=== PATIENT | female | born 1960 | race Hispanic/Latino ===

== ENCOUNTER 2023-07-10 15:42 | Inpatient (IN) | payer SELFPAY ==
--- OUTSIDE RECORDS SUMMARY | 2023-07-10 15:45 | XMS REPORT | Continuity of Care Document ---
Author Name Unknown Address [address] [place] [address] [place] [address] [facility] Address [address] [place] [address] [address] [place] [address] Care Team Providers Care Babysitter Name Role Phone Unavailable Unavailable Unavailable Encounters Start Date/Time End Date/Time Encounter Type Admission Type Attending Clinicians Care Facility Care Department Encounter ID Source 2021-10-17 15:27:27 Outpatient [facility] [id number] [facility] 2021-10-15 13:51:16 Outpatient [facility] [id number] [facility] 2023-03-19 13:12:48 2023-03-19 13:12:48 Outpatient [facility] [id number] Um[address] Hearn
[2023-07-10 17:04] LABS: Absolute Lymphocytes (CBC) 2.2 K/uL (0.7-4.9); Hematocrit 32.2 % (36.0-45.0); Lymphocytes % 28.2 % (15.3-44.8); MPV 8.2 fL (7.6-11.3); Platelets 216 thou/uL (152-406)
[2023-07-10 17:21] LABS: Magnesium 2.5 mg/dL (1.6-2.4); Potassium 4.9 mEq/L (3.5-5.1)
--- NOTE | 2023-07-10 17:56 | RAD REPORT ---
EXAM DESCRIPTION: [place] Single View07/10/2023 5:35 pm CLINICAL HISTORY: Chest pain COMPARISON: 2016 FINDINGS: Mild bilateral interstitial lung opacities. Heart may be mildly enlarged IMPRESSION: Mild interstitial pulmonary edema
[2023-07-10] MEDS ORDERED: FUROSEMIDE 20 MG/ 2ML VIAL ONE (18:05)
--- NOTE | 2023-07-10 18:20 | ER ---
Nurse's Notes [facility] Name: Sophia Palacios Age: 62 yrs Sex: Female : 1960 Arrival Date: 07/10/2023 Time: 15:42 Bed 5 Private MD: Diagnosis: Dyspnea;Acute pulmonary edema;Unspecified combined systolic (congestive) and diastolic (congestive) heart failure;Chest pain, unspecified Presentation: 07/10 15:49 Chief complaint: Patient states: she has been having shortness of breath for approx one ap3 week, and chest pain on the left side that began today which is worse when she takes a deep breath in. patient rates her pain as a 6/10 on the pain scale at this time. Coronavirus screen: At this time, the client does not indicate any symptoms associated with coronavirus-19. Ebola Screen: No symptoms or risks identified at this time. Initial Sepsis Screen: Does the patient meet any 2 criteria?. Risk Assessment: Do you want to hurt yourself or someone else? Patient reports no desire to harm self or others. Onset of symptoms was July 03, 2023. 15:49 Method Of Arrival: EMS: [facility] ap3 16:33 Initial Sepsis Screen: Does the patient have a suspected source of infection? No. jl7 Patient's initial sepsis screen is negative. 16:33 Acuity: MARU 2 jl7 Triage Assessment: 15:51 General: Appears comfortable, Behavior is calm, cooperative. Pain: Complains of pain in ap3 anterior aspect of left upper chest and left breast Pain currently is 6 out of 10 on a pain scale. Neuro: Level of Consciousness is awake, alert, obeys commands, Oriented to person, place, time, situation, Appropriate for age. Cardiovascular: Reports chest pain, Patient's skin is warm and dry. Respiratory: Airway is patent Respiratory effort is even, unlabored, Respiratory pattern is regular, symmetrical. Historical: - Allergies: 16:32 Zofran; jl7 16:32 PENICILLINS; jl7 - PMHx: 15:51 Anxiety; Bipolar disorder; Depression; Depression; ESRD; Headaches; Hypertension; ap3 Hypothyroidism; - Immunization history:: Adult Immunizations unknown. - Social history:: Smoking status: Patient reports the use of cigarette tobacco products, denies chronic smoking, but will smoke occasionally. Screenin:52 Abuse screen: Denies threats or abuse. Nutritional screening: No deficits noted. ap3 Tuberculosis screening: No symptoms or risk factors identified. 18:00 [facility] ED Fall Risk Assessment (Adult) History of falling in the last 3 months, jw7 including since admission No falls in past 3 months (0 pts) Score/Fall Risk Level 0 - 2 = Low Risk Oriented to surroundings, Maintained a safe environment, Provided non-skid footwear. Assessment: 17:00 General: see triage assessment . jw7 18:00 Reassessment: Patient appears in no apparent distress at this time. No changes from jw7 previously documented assessment. Patient and/or family updated on plan of care and expected duration. Pain level reassessed. Patient is alert, oriented x 3, equal unlabored respirations, skin warm/dry/pink. 19:00 Reassessment: Patient appears in no apparent distress at this time. No changes from km8 previously documented assessment. Patient and/or family updated on plan of care and expected duration. Pain level reassessed. Patient is alert, oriented x 3, equal unlabored respirations, skin warm/dry/pink. 19:00 Neuro: Level of Consciousness is awake, alert, obeys commands, Oriented to person, km8 place, time, situation. Cardiovascular: Denies chest pain, Capillary refill < 3 seconds Patient's skin is warm and dry. Respiratory: Reports shortness of breath Airway is patent Respiratory effort is even, unlabored, Respiratory pattern is regular, symmetrical. 20:00 Reassessment: Patient appears in no apparent distress at this time. No changes from km8 previously documented assessment. Patient and/or family updated on plan of care and expected duration. Pain level reassessed. Patient is alert, oriented x 3, equal unlabored respirations, skin warm/dry/pink. 21:00 Reassessment: Patient appears in no apparent distress at this time. No changes from km8 previously documented assessment. Patient and/or family updated on plan of care and expected duration. Pain level reassessed. Patient is alert, oriented x 3, equal unlabored respirations, skin warm/dry/pink. Vital Signs: 15:49 Weight 61.23 kg; Height 5 ft. 3 in. ; Pain 6/10; ap3 16:32 BP 136 / 105; Pulse 78; Resp 15; Temp 97.7; Pulse Ox 100% ; Weight 61.23 kg; Height 5 [facility] ft. 3 in. ; Pain 6/10; 18:00 BP 141 / 110; Pulse 82; Resp 17 S; Pulse Ox 95% on R/A; jw7 18:46 BP 134 / 101; Pulse 78; Resp 16 S; Pulse Ox 98% on R/A; jw7 19:15 BP 139 / 93; Pulse 78; Resp 18; Pulse Ox 98% on 2 lpm NC; km8 20:00 BP 131 / 90; Pulse 75; Resp 18; Pulse Ox 98% on 2 lpm NC; km8 21:00 BP 115 / 72; Pulse 82; Resp 18; Pulse Ox 98% on NC; km8 16:32 Body Mass Index 23.91 (61.23 kg, 160.02 cm) [facility] 15:49 Pain Scale: Adult ap3 16:32 Pain Scale: Adult 7 ED Course: 15:49 Patient arrived in ED. ap3 15:52 Arm band placed on right wrist. ap3 16:33 Triage completed. [facility] 16:48 Anthony Savage PA is PHCP. cp 16:48 Anthony Hinojosa MD is Attending Physician. cp 16:55 Initial lab(s) drawn, by in, sent to lab. EKG done, by ED staff, reviewed by Anthony alvarez PA. Maintain EMS IV. Dressing intact. Good blood return noted. Site clean \T\ dry. Gauge \T\ site: 20 left FA. 17:37 XRAY Chest (1 view) In Process Unspecified. EDMS 18:18 Js Cooper MD is Hospitalizing Provider. cp 18:47 Patient has correct armband on for positive identification. Bed in low position. Call [facility] light in reach. Side rails up X2. 21:00 Provided Education on: admission process. km8 21:00 No provider procedures requiring assistance completed. Patient admitted, IV remains in km8 place. Administered Medications: 18:16 Drug: Furosemide IVP 20 mg IVP once; give over 2 minutes Route: IVP; Site: left forearm;[facility] 19:00 Follow up: Response: No adverse reaction [facility] 18:44 Drug: morphine IVP or IV 2 mg IVP once over 4 mins Route: IVP; Infused Over: 4 mins; [facility] Site: left forearm; 19:00 Follow up: Response: No adverse reaction; Pain is decreased km8 18:44 Drug: metoCLOPramide IVP 10 mg IVP once; over 1 to 2 minutes Route: IVP; Site: left jw7 forearm; 19:00 Follow up: Response: No adverse reaction km8 Medication: 21:00 VIS not applicable for this client. km8 Outcome: 18:19 Decision to Hospitalize by Provider. cp 21:00 Admitted to Med/surg km8 21:00 Condition: stable 21:00 Instructed on the need for admit, Demonstrated understanding of instructions, 07/11 10:51 Patient left the ED. cp4 Signatures: Dispatcher [employer] EDMS Anthony Savage PA PA cp Leal, Jahala RN RN randy7 Hina Roth RN RN ap3 Geraldine Garrett RN RN jw7 Babita Roe cp4 Zeina Vargas, LEANDER RN km8 Corrections: (The following items were deleted from the chart) 07/10 15:51 15:51 Allergies: Tylenol; ap3 ap3 15:51 15:51 Allergies: Zofran; ap3 ap3 18:45 16:00 General: see triage assessment . jw7 jw7
--- NOTE | 2023-07-10 18:20 | EDPHYS ---
Physician Documentation [facility] Name: Sophia Palacios Age: 62 yrs Sex: Female : 1960 Arrival Date: 07/10/2023 Time: 15:42 Bed 5 Private MD: ED Physician Anthony Hinojosa HPI: 07/10 16:53 This 62 yrs old Female presents to ER via EMS with complaints of Chest Pain. cp 16:53 The patient has shortness of breath with light activity. Onset: The symptoms/episode cp began/occurred 4 day(s) ago, and became worse today. Duration: The symptoms are continuous, and are steadily getting worse. Associated signs and symptoms: Pertinent positives: chest pain, non-productive cough, Pertinent negatives: fever, nausea, vomiting. Severity of symptoms: in the emergency department the symptoms are unchanged despite home interventions. Historical: - Allergies: 16:32 Zofran; jl7 16:32 PENICILLINS; jl7 - PMHx: 15:51 Anxiety; Bipolar disorder; Depression; Depression; ESRD; Headaches; Hypertension; ap3 Hypothyroidism; - Immunization history:: Adult Immunizations unknown. - Social history:: Smoking status: Patient reports the use of cigarette tobacco products, denies chronic smoking, but will smoke occasionally. ROS: 16:55 Constitutional: Negative for body aches, chills, fever, poor PO intake, cp 16:55 Eyes: Negative for injury, pain, redness, and discharge, cp 16:55 ENT: Negative for drainage from ear(s), ear pain, sore throat, difficulty swallowing, difficulty handling secretions, 16:55 Cardiovascular: Positive for chest pain, Negative for edema, palpitations, 16:55 Respiratory: Positive for cough, with no reported sputum, shortness of breath, on exertion. Negative for wheezing, 16:55 Abdomen/GI: Negative for abdominal pain, vomiting, diarrhea, constipation, 16:55 Neuro: Positive for weakness, Negative for altered mental status, dizziness, headache, Exam: 16:45 ECG was reviewed by the Attending Physician. cp 17:00 Constitutional: The patient appears in no acute distress, alert, awake, cp non-diaphoretic, non-toxic, well developed, well nourished, 17:00 Head/Face: Normocephalic, atraumatic. cp 17:00 Eyes: Periorbital structures: appear normal, Conjunctiva: normal, no exudate, no injection, Sclera: no appreciated abnormality, Lids and lashes: appear normal, bilaterally, 17:00 ENT: External ear(s): are unremarkable, Nose: is normal, Mouth: Lips: moist, Oral mucosa: pink and intact, moist, Posterior pharynx: is normal, airway is patent, no erythema, no exudate, 17:00 Chest/axilla: Inspection: normal, 17:00 Cardiovascular: Rate: normal, Rhythm: regular, Edema: is not appreciated, JVD: 17:00 Respiratory: the patient does not display signs of respiratory distress, Respirations: normal, no use of accessory muscles, no retractions, labored breathing, is not present, Breath sounds: are clear throughout, no decreased breath sounds, no stridor, no wheezing, 17:00 Abdomen/GI: Inspection: abdomen appears normal, Palpation: abdomen is soft and non-tender, in all quadrants, 17:00 Back: pain, is absent, ROM is normal, CVA tenderness, is absent, cp 17:00 Neuro: Orientation: to person, place \T\ time. Mentation: is normal, Motor: moves all fours, strength is normal, Sensation: no obvious gross deficits, Vital Signs: 15:49 Weight 61.23 kg; Height 5 ft. 3 in. ; Pain 6/10; ap3 16:32 BP 136 / 105; Pulse 78; Resp 15; Temp 97.7; Pulse Ox 100% ; Weight 61.23 kg; Height 5 jl7 ft. 3 in. ; Pain 6/10; 18:00 BP 141 / 110; Pulse 82; Resp 17 S; Pulse Ox 95% on R/A; jw7 18:46 BP 134 / 101; Pulse 78; Resp 16 S; Pulse Ox 98% on R/A; jw7 19:15 BP 139 / 93; Pulse 78; Resp 18; Pulse Ox 98% on 2 lpm NC; km8 20:00 BP 131 / 90; Pulse 75; Resp 18; Pulse Ox 98% on 2 lpm NC; km8 21:00 BP 115 / 72; Pulse 82; Resp 18; Pulse Ox 98% on NC; km8 16:32 Body Mass Index 23.91 (61.23 kg, 160.02 cm) 7 15:49 Pain Scale: Adult ap3 16:32 Pain Scale: Adult jl7 MDM: 17:05 Patient medically screened. nawaf 18:15 Data reviewed: vital signs, nurses notes, lab test result(s), EKG, radiologic studies, cp plain films, and as a result, I will admit patient. 18:15 Management of patient was discussed with the following: Hospitalist: DR Cooper will cp admit after discussion. 07/10 16:39 Order name: Basic Metabolic Panel; Complete Time: 17:35 [facility] 07/10 17:35 Interpretation: Normal except: CL 110; GLUC 132; BUN 24; CRE 2.23; GFR 24. 07/10 16:39 Order name: CBC with Diff; Complete Time: 17:35 [facility] 07/10 17:36 Interpretation: RBC 3.50; HGB 11.0; HCT 32.2. 07/10 16:39 Order name: Troponin HS; Complete Time: 17:35 [facility] 07/10 16:53 Order name: Urinalysis W/Microscopic 07/10 16:58 Order name: NT PRO-BNP; Complete Time: 17:35 [facility] 07/10 17:36 Interpretation: Normal except: NT PRO-BNP 33396. 07/10 16:58 Order name: Magnesium; Complete Time: 17:35 [facility] 07/10 17:36 Interpretation: Abnormal: MG 2.5. 07/10 20:05 Order name: CBC with Automated Diff [facility] 07/10 20:05 Order name: CBC with Automated Diff [facility] 07/10 20:05 Order name: Comprehensive Metabolic Panel [facility] 07/10 20:05 Order name: Comprehensive Metabolic Panel [facility] 07/10 20:05 Order name: Lipid Profile [facility] 07/10 20:05 Order name: Lipid Profile [facility] 07/10 20:05 Order name: Troponin High Sensitivity [facility] 07/10 20:05 Order name: Troponin High Sensitivity [facility] 07/10 20:05 Order name: Troponin High Sensitivity [facility] 07/10 20:05 Order name: Troponin High Sensitivity [facility] 07/10 21:53 Order name: Glucose, Ancillary Testing [facility] 07/11 08:41 Order name: Glucose, Ancillary Testing [facility] 07/10 16:39 Order name: XRAY Chest (1 view); Complete Time: 18:14 [facility] 07/10 16:39 Order name: EKG; Complete Time: 16:40 07/10 16:39 Order name: Cardiac monitoring; Complete Time: 17:59 07/10 16:39 Order name: EKG - Nurse/Tech; Complete Time: 16:56 07/10 16:39 Order name: IV Saline Lock; Complete Time: 16:56 07/10 16:39 Order name: Labs collected and sent; Complete Time: 16:56 07/10 16:39 Order name: O2 Per Protocol; Complete Time: 16:56 07/10 16:39 Order name: O2 Sat Monitoring; Complete Time: 16:56 EC:45 Rate is 78 beats/min. Rhythm is regular. TX interval is normal. QRS interval is normal. cp QT interval is normal. Interpreted by me. Reviewed by me. Administered Medications: 18:16 Drug: Furosemide IVP 20 mg IVP once; give over 2 minutes Route: IVP; Site: left forearm;[facility] 19:00 Follow up: Response: No adverse reaction [facility] 18:44 Drug: morphine IVP or IV 2 mg IVP once over 4 mins Route: IVP; Infused Over: 4 mins; [facility] Site: left forearm; 19:00 Follow up: Response: No adverse reaction; Pain is decreased 8 18:44 Drug: metoCLOPramide IVP 10 mg IVP once; over 1 to 2 minutes Route: IVP; Site: left [address]; 19:00 Follow up: Response: No adverse reaction km8 Disposition Summary: 07/10/23 18:19 Hospitalization Ordered Notes: Hospitalization Status: Inpatient Admission cp Provider: Js Cooper cp Condition: Stable cp Problem: new cp Symptoms: have improved cp Bed/Room Type: Standard cp Location: Telemetry/MedSurg (Inpatient)(07/11/23 07:27) sp Room Assignment: 211(07/11/23 07:27) sp Diagnosis - Dyspnea cp - Acute pulmonary edema cp - Unspecified combined systolic (congestive) and diastolic (congestive) heart failure cp - Chest pain, unspecified cp Forms: - Medication Reconciliation Form cp - SBAR form cp - Leadership Thank You Letter cp Signatures: Dispatcher [employer] EDAnthony Bravo MD MD cha Pinkerton, Shawna sp Page, Corey, PA PA cp Garcia, Cindy, RN RN cg Sukhwinder Alberto RN RN jl7 Hina Roth RN RN ap3 Geraldine Garrett RN RN jw7 Zeina Vargas RN km8 Corrections: (The following items were deleted from the chart) 15:51 15:51 Allergies: Tylenol; ap3 ap3 15:51 15:51 Allergies: Zofran; ap3 ap3 16:56 16:53 Urinalysis W/Microscopic+U.LAB.BRZ ordered. EDMS EDMS 16:58 16:42 PROBNP+C.LAB.BRZ ordered. EDMS EDMS 16:59 16:53 MAGNESIUM+C.LAB.BRZ ordered. EDMS EDMS 19:55 18:19 Telemetry/MedSurg (Inpatient) cp cg 19:55 18:19 cp cg 07/11 07:27 07/10 19:55 [facility] ER HOLD cg sp 07/11 07:27 07/10 19:55 ERHOLD- cg sp
[2023-07-10] MEDS ORDERED: METOCLOPRAMIDE 10 MG/2mL INJ ONE (18:35)
[2023-07-10] MEDS ORDERED: MORPHINE 2 MG/ML SYR ONE (18:35)
[2023-07-10] MEDS ORDERED: ONDANSETRON 4 MG/2 ML VIAL IV PRN (19:59)
[2023-07-10] MEDS ORDERED: ACETAMINOPHEN 325 MG TABLET PO PRN (19:59)
[2023-07-10] MEDS: INSULIN REGULAR (HUMAN) 100 UNIT/ML SQ SCH (21:48)
[2023-07-11] MEDS ORDERED: FUROSEMIDE 40 MG/4 ML VIAL ONE ×2 (00:59→10:04)
[2023-07-11] MEDS ORDERED: HEPARIN 5000 UNIT/ML 1 ML VIAL ONE ×2 (00:59→10:03)
[2023-07-11] MEDS: FUROSEMIDE 40 MG/4 ML VIAL IV SCH ×2 (01:20→09:00)
[2023-07-11] MEDS: HEPARIN 5000 UNIT/ML 1 ML VIAL SQ SCH ×3 (01:20→16:21)
[2023-07-11 03:25] LABS: Specific Gravity 1.007 (1.005-1.030); Urine Bacteria <20 /HPF (<20); Urine Bilirubin NEGATIVE (Negative); Urine Blood Negative (Negative); Urine Clarity Turbid (Clear); Urine Color Colorless (Yellow); Urine Glucose NEGATIVE (Negative); Urine Mucus Slight /HPF (None Seen); Urine Protein NEGATIVE (Negative); Urine RBC <5 /HPF (None Seen); Urine Urobilinogen Normal (Normal); Urine pH 5.5 (5.0-7.0)
[2023-07-11 04:25] LABS: Absolute Lymphocytes (CBC) 2.7 K/uL (0.7-4.9); Hematocrit 32.8 % (36.0-45.0); Lymphocytes % 31.7 % (15.3-44.8); MCV 92.2 fL (80-100); MPV 8.2 fL (7.6-11.3); Platelets 235 thou/uL (152-406); RBC Red Blood Cell Count 3.55 M/uL (3.86-4.86)
--- NOTE | 2023-07-11 04:34 | P.HP ---
Certification for Inpatient Patient admitted to: Observation With expected LOS: <2 Midnights Practitioner: I am a practitioner with admitting privileges, knowledge of patient current condition, hospital course, and medical plan of care. Services: Services provided to patient in accordance with Admission requirements found in Title 42 Section 412.3 of the Code of Federal Regulations Patient History Date of Service: 07/11/23 Reason for admission: CHF exacerbation History of Present Illness: 62-year-old female patient with medical history significant for hypertension, depression, chronic kidney disease was evaluated for episode of shortness of breath. She reported shortness of breath on minimal to moderate exertion, orthopnea and PND symptoms. She reports that she wakes up in the middle of the night gasping for breath and she has to sit up. This has been going on for couple of weeks. In the ED she was found to have x-ray finding concerning for congestion and elevated BNP with a creatinine of 2.3. She was started on diuretic therapy and was asked to be admitted for management of CHF exacerbation. She reports that she has not had significant heart workup in the past. Allergies acetaminophen [From Tylenol] Allergy (Unverified 10/17/15 15:12) Unknown No Known Drug Allergies Allergy (Verified 10/12/14 22:41) Unknown ondansetron HCl [From Zofran (as hydrochloride)] Allergy (Unverified 11/10/14 21:58) Unknown Penicillins Allergy (Unverified 11/25/14 00:48) Unknown Zofran Allergy (Uncoded 03/14/15 18:01) Unknown Zofran (as hydrochloride) Allergy (Uncoded 12/22/14 09:47) Unknown Home Medications: Metoprolol Tartrate [Lopressor*] 100 mg PO BID 07/23/13 Aspirin Chewable [Aspirin Chewable*] 81 mg PO DAILY #30 tab.chew 04/19/14 Amlodipine [Norvasc*] 10 mg PO DAILY 10/13/14 Citalopram [Celexa*] 10 mg PO DAILY 10/13/14 Trazodone HCl 100 mg PO DAILY 07/10/23 - Past Medical/Surgical History Diabetic: No -: depression -: bipolar -: htn -: hypothyroidism -: chronic renal failure -: anxiety -: migraines -: hysterectomy -: tubal ligation -: gastric bypass -: bilateral tubal -: fatuma funduplication - Social History Smoking Status: Light Tobacco smoker (1-9 cigarettes/day) Alcohol use: No CD- Drugs: No Caffeine use: No Review of Systems General: Unremarkable Eyes: Unremarkable ENT: Unremarkable Respiratory: Shortness of Breath, SOB with Excertion Cardiovascular: Orthopnea, Paroxysmal Noc. Dyspnea Gastrointestinal: Unremarkable Genitourinary: Unremarkable Musculoskeletal: Unremarkable Integumentary: Unremarkable Neurological: Unremarkable Physical Examination - Vital Signs Blood Pressure: 115/79 Pulse: 75 Respirations: 18 Pulse Ox (%): 96 - Physical Exam General: Alert, Oriented x3 HEENT: Atraumatic Neck: Supple Respiratory: Normal air movement Cardiovascular: Regular rate/rhythm, Normal S1 S2 Gastrointestinal: Soft and benign Musculoskeletal: No swelling Neurological: Normal speech - Studies Laboratory Data (last 24 hrs) 07/10/23 07/10/23 07/10/23 16:53 16:49 16:49 WBC 7.70 Hgb 11.0 L Hct 32.2 L Plt Count 216 Sodium 138 Potassium 4.9 BUN 24 H Creatinine 2.23 H Glucose 132 H Magnesium Cancelled 2.5 H Assessment and Plan - Plan CHF exacerbation: Patient has clinical and imaging finding concerning for Will continue IV Lasix 40 mg every 8 Will continue fluid restriction of 1.2 L/day. Continue out of the diet. Will have echocardiogram done to evaluate cardiac function Hypertension: We will monitor vital signs per unit protocol and continue antihypertensive medications. Hyperlipidemia: We will continue statin therapy and obtain lipid panel. ANGELY versus CKD: Creatinine is elevated at 2.3. Will dose meds for estimated glomerular filtration and avoid exposure to nephrotoxins. We will obtain renal ultrasound to evaluate for CKD. Prophylaxis: Heparin for DVT prophylaxis CODE STATUS: Full code Disposition: We will treat her CHF exacerbation and discharge her once she is deemed clinically stable. - Advance Directives Does patient have a Living Will: No Does patient have a Durable POA for Healthcare: No
[2023-07-11 04:54] LABS: Albumin 3.5 g/dL (3.4-5.0); Bilirubin Total 0.5 mg/dL (0.2-1.0); Potassium 3.7 mEq/L (3.5-5.1)
[2023-07-11] MEDS ORDERED: POTASSIUM 25 MEQ EFFERV TAB PO ONE (05:14)
[2023-07-11] MEDS ORDERED: POTASSIUM 25 MEQ EFFERV TAB ONE (05:53)
[2023-07-11] MEDS: INSULIN REGULAR (HUMAN) 100 UNIT/ML SQ SCH ×4 (07:30→20:00)
--- NOTE | 2023-07-11 12:28 | P.PN ---
Subjective Date of Service: 07/11/23 Chief Complaint: CHF exacerbation Pt is resting comfortably in bed. She is using 2L BNC. Pt reports good urine output. This is likely new onset CHF. Will follow up Echo. Consulted cardiology. No other complaints. Review of Systems Unremarkable General: Unremarkable Eyes: Unremarkable ENT: Unremarkable Respiratory: Unremarkable Cardiovascular: Unremarkable Gastrointestinal: Unremarkable Genitourinary: Unremarkable Musculoskeletal: Unremarkable Integumentary: Unremarkable Neurological: Unremarkable Lymphatics: Unremarkable Physical Examination - Vital Signs Temperature: 98 F Blood Pressure: 119/87 Pulse: 66 Respirations: 18 Pulse Ox (%): 100 - Physical Exam General: Alert, In no apparent distress, Oriented x3 HEENT: Atraumatic, Normocephalic Neck: Supple, 2+ carotid pulse no bruit Respiratory: Clear to auscultation bilaterally, Normal air movement Cardiovascular: No edema, Normal pulses Capillary refill: <2 Seconds Gastrointestinal: Normal bowel sounds, Soft and benign, Non-distended Musculoskeletal: No clubbing, No swelling Integumentary: No rashes, No breakdown Neurological: Normal gait, Normal speech, Normal strength at 5/5 x4 extr Lymphatics: No axilla or inguinal lymphadenopathy - Studies Laboratory Data (last 24 hrs) 07/10/23 07/10/23 07/10/23 16:53 16:49 16:49 WBC 7.70 Hgb 11.0 L Hct 32.2 L Plt Count 216 Sodium 138 Potassium 4.9 BUN 24 H Creatinine 2.23 H Glucose 132 H Magnesium Cancelled 2.5 H Assessment And Plan - Plan New onset CHF exacerbation:Will contineu lasix 20mg iv BID, strict I/O, daily weight and low salt diet. Troponin is 44.5 -> 48.7. Will follow up Echo and consult Cardiology Hypertension: Continue antihypertensive. Hyperlipidemia: Lipid panel shows T.chol of 408 and LDL 278. Will start Statin. ANGELY versus CKD: Creatinine is 2.27. Will avoid nephrotoxins and monitor renal function. DVT Prophylaxis: Heparin CODE STATUS: Full code Disposition: Pending hospital course. Discharge Plan: Home Plan to discharge in: 24 Hours - Code Status/Comfort Care Code Status Assessed: Yes
--- NOTE | 2023-07-11 13:10 | RAD REPORT ---
EXAM DESCRIPTION: US - Renal Ultrasound-Complete - 07/11/2023 11:42 am CLINICAL HISTORY: eval of ckd COMPARISON: CTSTONE PROTOCOL dated 12/22/2014 TECHNIQUE: Sonographic grayscale and color flow images of the kidneys and bladder were obtained. FINDINGS: Normal shape, and echotexture of the kidneys. The right kidney measures 9.5 cm in length. Mild prominence of the right renal pelvis. No focal mass, or echogenic calculi. The left kidney is atrophic, not well evaluated given over shadowing ribs and bowel gas. No hydroneph rosis is appreciated. Visualized portions demonstrate no focal mass, or echogenic calculi. The urinary bladder is without gross abnormality seen. IMPRESSION: Atrophic left kidney, evaluation of the left kidney is limited as above. Mildly prominent right renal pelvis could relate to mild hydronephrosis.
[2023-07-11] MEDS: Oxycodone HCl/Acetaminophen 5/325 MG TAB PO PRN (15:44)
[2023-07-11] MEDS: FUROSEMIDE 20 MG/ 2ML VIAL IV SCH (16:22)
[2023-07-11] MEDS: ATORVASTATIN 40 MG TAB PO SCH (20:00)
[2023-07-11] MEDS ORDERED: TRAZODONE 50 MG TABLET PO ONE (20:04)
[2023-07-12] MEDS: HEPARIN 5000 UNIT/ML 1 ML VIAL SQ SCH ×3 (00:58→16:40)
[2023-07-12 03:18] LABS: Absolute Lymphocytes (CBC) 2.8 K/uL (0.7-4.9); Hematocrit 32.9 % (36.0-45.0); Lymphocytes % 33.7 % (15.3-44.8); MCV 92.8 fL (80-100); MPV 8.3 fL (7.6-11.3); Platelets 222 thou/uL (152-406); RBC Red Blood Cell Count 3.55 M/uL (3.86-4.86)
[2023-07-12 03:44] LABS: Magnesium 2.2 mg/dL (1.6-2.4); Potassium 3.6 mEq/L (3.5-5.1)
[2023-07-12] MEDS: INSULIN REGULAR (HUMAN) 100 UNIT/ML SQ SCH ×4 (07:30→21:00)
[2023-07-12] MEDS: FUROSEMIDE 20 MG/ 2ML VIAL IV SCH ×2 (08:28→16:37)
[2023-07-12] MEDS: Oxycodone HCl/Acetaminophen 5/325 MG TAB PO PRN ×3 (08:37→21:20)
[2023-07-12] MEDS ORDERED: POTASSIUM CL SA 10 MEQ TAB PO ONE (09:00)
[2023-07-12] MEDS: ATORVASTATIN 40 MG TAB PO SCH (20:04)
[2023-07-12] MEDS: TRAZODONE 50 MG TABLET PO PRN (23:24)
[2023-07-13] MEDS: HEPARIN 5000 UNIT/ML 1 ML VIAL SQ SCH ×3 (00:20→16:44)
[2023-07-13 04:13] LABS: Potassium 3.5 mEq/L (3.5-5.1)
[2023-07-13 05:57] VITALS: BMI 21.9
[2023-07-13] MEDS: INSULIN REGULAR (HUMAN) 100 UNIT/ML SQ SCH ×4 (07:30→21:00)
[2023-07-13] MEDS: FUROSEMIDE 20 MG/ 2ML VIAL IV SCH (08:24)
[2023-07-13] MEDS ORDERED: POTASSIUM CL SA 10 MEQ TAB PO ONE (09:00)
--- NOTE | 2023-07-13 10:01 | P.PN ---
Date of Service: 07/12/23 Subjective Patient is doing better; awaiting echocardiogram Physical Examination - Vital Signs reviewed - Physical Exam General: Alert, In no apparent distress, Oriented x3 HEENT: Atraumatic, Normocephalic Neck: Supple, 2+ carotid pulse no bruit Respiratory: Clear to auscultation bilaterally, Normal air movement Cardiovascular: No edema, Normal pulses Capillary refill: <2 Seconds Gastrointestinal: Normal bowel sounds, Soft and benign, Non-distended Musculoskeletal: No clubbing, No swelling Integumentary: No rashes, No breakdown Neurological: Normal gait, Normal speech, Normal strength at 5/5 x4 extr Lymphatics: No axilla or inguinal lymphadenopathy Assessment And Plan - Assessment 1. Acute CHF exacerbation 2. HTN 3. Dyslipidemia 4. CKD IV - Plan 1. New onset CHF exacerbation:Will continue lasix 20mg iv BID, strict I/O, daily weight and low salt diet. Troponin is 44.5 -> 48.7. Will follow up Echo and consult Cardiology 2. Hypertension: Continue antihypertensive. 3. Hyperlipidemia: Lipid panel shows T.chol of 408 and LDL 278. Will start Statin. 4. ANGELY versus CKD: Creatinine is 2.27. Will avoid nephrotoxins and monitor renal function. DVT Prophylaxis: Heparin CODE STATUS: Full code Disposition: Pending hospital course. Discharge Plan: Home Plan to discharge in: 24 Hours - Code Status/Comfort Care Code Status Assessed: Yes
[2023-07-13] MEDS: Oxycodone HCl/Acetaminophen 5/325 MG TAB PO PRN ×2 (12:01→20:13)
[2023-07-13] MEDS: ATORVASTATIN 40 MG TAB PO SCH (20:14)
--- NOTE | 2023-07-13 21:19 | P.PN ---
Date of Service: 07/13/23 Subjective Patient is doing better; echocardiogram completed. Results pending. Patient's currently on 2 L of oxygen. Will check room air O2 sats. Patient does not qualify that should be able to go home and we can call her with echo results. Results pending at this time. Physical Examination - Vital Signs reviewed - Physical Exam General: Alert, In no apparent distress, Oriented x3 Respiratory: Clear to auscultation bilaterally, Normal air movement Cardiovascular: Regular rate and rhythm with systolic ejection murmur 2 out of 6 Gastrointestinal: Normal bowel sounds, Soft and benign, Non-distended Musculoskeletal: No clubbing, No swelling Integumentary: No rashes, No breakdown Neurological: No focal deficits Assessment And Plan - Assessment 1. Acute CHF exacerbation/HFpEF 2. HTN 3. Dyslipidemia 4. Acute on CKD IV - Plan 1. New onset CHF exacerbation: Continue with diuresing. Patient's volume status looks to be stable. Echocardiogram results pending. Dissipate discharge home once we check room air O2 sats. Patient need to follow-up as an outpatient with rheumatology as well as cardiology. 2. Hypertension: Continue antihypertensive. 3. Hyperlipidemia: Lipid panel shows T.chol of 408 and LDL 278. Will start Statin. 4. ANGELY versus CKD: Creatinine is 2.27. Will avoid nephrotoxins and monitor renal function. Repeat renal function. Labs are stable. DVT Prophylaxis: Heparin CODE STATUS: Full code Discharge Plan: Home Plan to discharge in: 24 Hours - Code Status/Comfort Care Code Status Assessed: Yes
[2023-07-13] MEDS: TRAZODONE 50 MG TABLET PO PRN (23:06)
[2023-07-14] MEDS: HEPARIN 5000 UNIT/ML 1 ML VIAL SQ SCH ×2 (00:39→08:10)
[2023-07-14 03:00] LABS: Potassium 3.4 mEq/L (3.5-5.1)
[2023-07-14] MEDS: INSULIN REGULAR (HUMAN) 100 UNIT/ML SQ SCH (07:30)
[2023-07-14] MEDS: Oxycodone HCl/Acetaminophen 5/325 MG TAB PO PRN (08:10)
[2023-07-14 09:44] VITALS: O2SAT 92
[2023-07-14 10:17] VITALS: BP 119/73; TEMP 97.5
[2023-07-14 11:24] LABS: Absolute Lymphocytes (CBC) 2.3 K/uL (0.7-4.9); Hematocrit 29.4 % (36.0-45.0); Lymphocytes % 35.3 % (15.3-44.8); MCV 92.1 fL (80-100); MPV 7.4 fL (7.6-11.3); Platelets 204 thou/uL (152-406); RBC Red Blood Cell Count 3.19 M/uL (3.86-4.86)
[2023-07-14 11:34] LABS: Potassium 3.6 mEq/L (3.5-5.1)
--- NOTE | 2023-07-15 07:31 | ECHO ---
HEIGHT: 5 ft 3 in WEIGHT: 124 lb 3.2 oz DATE OF STUDY: 07/13/[address]: sJ Cooper MD 2-DIMENSIONAL: YES M.MODE: YES DOPPLER: YES COLOR FLOW: YES TDS: PORTABLE: YES DEFINITY: BUBBLE STUDY: DIAGNOSIS: EVALUATION OF CONGESTIVE HEART FAILURE CARDIAC HISTORY: CATHERIZATION: SURGERY: PROSTHETIC VALVE: PACEMAKER: MEASUREMENTS (cm) DIASTOLIC (NORMALS) SYSTOLIC (NORMALS) IVSd 0.9 (0.6-1.2) LA Diam 3.6 (1.9-4.0) LVEF 32% LVIDd 4.9 (3.5-5.7) LVIDs 4.2 (2.0-3.5) %FS 15% LVPWd 1.0 (0.6-1.2) Ao Diam 2.5 (2.0-3.7) 2 DIMENSIONAL ASSESSMENT: RIGHT ATRIUM: NORMAL LEFT ATRIUM: NORMAL RIGHT VENTRICLE: NORMAL LEFT VENTRICLE: DEPRESSED EJECTION FRACTION TRICUSPID VALVE: MILD TRICUSPID REURGITATION MITRAL VALVE: MILD MITRAL REGURGITATION PULMONIC VALVE: NORMAL AORTIC VALVE: NORMAL PERICARDIAL EFFUSION: NONE AORTIC ROOT: NORMAL LEFT VENTRICULAR WALL MOTION: SEVERE GLOBAL HYPOKINESIS DOPPLER/COLOR FLOW: SEE BELOW COMMENTS: 1. SEVERELY DEPRESSED LEFT VENTRICULAR EJECTION FRACTION 25-30% 2. SEVERE GLOBAL HYPOKINESIS 3. MILD MITRAL REGURGITATION 4. MILD TRICUSPID REGURGITATION TECHNOLOGIST: YOLANDA BABB
--- NOTE | 2023-07-15 13:36 | EKG ---
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
== END 2023-07-14 15:10 | disposition home or self-care (01) | DRG 291 ==
LOC: ER 15:42 → ERHOLD 19:59 → 2ND 07-11 10:04 → OBSVTOIN 07-12 13:01
PROVIDERS: ADMIT Internal Medicine Nephrology; ATTEND Hospitalist
DX: I13.0 Hypertensive heart and chronic kidney disease with heart failure and stage 1 through stage 4 chronic kidney disease, or unspecified chronic kidney disease (principal); I50.43 Acute on chronic combined systolic (congestive) and diastolic (congestive) heart failure; N17.9 Acute kidney failure, unspecified; N18.4 Chronic kidney disease, stage 4 (severe); E78.5 Hyperlipidemia, unspecified; E03.9 Hypothyroidism, unspecified; F31.9 Bipolar disorder, unspecified; F17.210 Nicotine dependence, cigarettes, uncomplicated
CPT/HCPCS: 36415; 71045; 76770; 80048; 80053; 80061; 81001; 82947; 83735; 83880; 84484; 85025; 93005; 93306; 96374; 96375; 99285; G0378; J1644; J1940; J2270; J2765

== ENCOUNTER 2024-01-04 15:16 | Inpatient (IN) | payer SELFPAY ==
--- NOTE | 2024-01-04 15:56 | RAD REPORT ---
EXAM DESCRIPTION: RAD - Chest Single View - 01/04/2024 3:49 pm CLINICAL HISTORY: CHEST PAIN Chest pain. COMPARISON: Chest Single View dated 07/10/2023; Chest Single View dated 10/17/2015; CHEST SINGLE VIEW dated 02/24/2015; CHEST SINGLE VIEW dated 12/22/2014 FINDINGS: Portable technique limits examination quality. The lungs are grossly clear. The heart is mildly enlarged in size. No displaced fractures. IMPRESSION: No acute intrathoracic process suspected.
[2024-01-04] MEDS ORDERED: MORPHINE 2 MG/ML SYR ONE ×2 (15:57→17:26)
[2024-01-04] MEDS ORDERED: ONDANSETRON 4 MG/2 ML VIAL ONE (15:57)
[2024-01-04] MEDS ORDERED: NA CHLORIDE 0.9% 500 ML ONE ×2 (15:58→17:26)
[2024-01-04 16:47] LABS: Absolute Basophils 0.1 K/uL (0-0.5); Absolute Lymphocytes (CBC) 1.1 K/uL (0.7-4.9); Absolute Monocytes 0.1 K/uL (0.1-1.3); Absolute Neutrophil 5.3 K/uL (1.8-8.0); Eosinophils % 0.2 % (0-4.4); Hematocrit 27.3 % (36.0-45.0); Hemoglobin 9.4 g/dL (12.0-15.0); Lymphocytes % 16.9 % (15.3-44.8); MCH 32.3 pg (27.0-35.0); MCHC 34.5 g/dL (32.0-36.0); MCV 93.7 fL (80-100); MPV 7.9 fL (7.6-11.3); Monocytes % 1.8 % (3.3-12.3); Neutrophils % 80.1 % (41.7-73.7); Nucleated Red Blood Cells % 0.2 % (0-0); Platelets 192 thou/uL (152-406); RBC Red Blood Cell Count 2.91 M/uL (3.86-4.86); Red Cell Distribution Width 13.9 % (12.1-15.2)
[2024-01-04 16:49] LABS: PT Prothrombin Time 11.9 SECONDS (9.5-12.5); Protime INR 1.08
[2024-01-04 17:04] LABS: Anion Gap 7.7 mEq/L (5.0-15.0); Potassium 3.7 mEq/L (3.5-5.1)
[2024-01-04 17:07] LABS: Troponin High Sensitivity 136.6 pg/mL (<58.9)
[2024-01-04 17:38] LABS: Thyroid Stimulating Hormone 78.2 uIU/mL (0.358-3.740)
[2024-01-04] MEDS ORDERED: HEPARIN 5000 UNIT/ML 1 ML VIAL ONE (18:05)
[2024-01-04] MEDS ORDERED: HEPARIN/D5W 25,000 UNIT/500 ML BAG IV ONE (18:05)
--- NOTE | 2024-01-04 18:14 | EDPHYS ---
Physician Documentation [facility] Name: Sophia Palacios Age: 63 yrs Sex: Female : 1960 Arrival Date: 01/04/2024 Time: 15:16 Bed 23 Private MD: ED Physician Tony Knight HPI: 01/03 15:25 This 63 yrs old Female presents to ER via Unassigned with complaints of Chest ec2 Pain. 15:25 Patient arrives today for evaluation of chest pain. Patient reports chest pain ongoing ec2 throughout the night. Patient reports that his chest pain goes from her lower chest and upper chest. Patient reports no specific alleviating or exacerbating factors. . Historical: - Allergies: 15:31 PENICILLINS; ph 15:31 Zofran; ph - PMHx: 15:31 Anxiety; Bipolar disorder; Depression; ESRD; Headaches; Hypertension; Hypothyroidism; ph Congestive heart failure; - Immunization history:: Adult Immunizations unknown. - Infectious Disease History:: Denies. - Social history:: Smoking status: Patient reports the use of cigarette tobacco products, denies chronic smoking, but will smoke occasionally. ROS: 15:26 Constitutional: as per hpi ec2 Exam: 15:26 Constitutional: GEN: NAD Head: atraumatic Eyes: EOMI Ears: External ears are ec2 normal. CV: regular rate LUNGS: no respiratory distress ABD: non-distended SKIN: no evidence of rashes MSK: no evidence of trauma NEURO: moves all extremities equally Vital Signs: 15:29 BP 100 / 64; Pulse 81; Resp 18; Temp 97.4; Pulse Ox 99% on R/A; Weight 53.98 kg; Height ph 5 ft. 3 in. ; 16:55 BP 103 / 75; Pulse 77; Resp 18; Pulse Ox 94% on 2 lpm NC; ph 17:38 BP 94 / 68; Pulse 77; Resp 17; Pulse Ox 100% ; hb 19:15 BP 89 / 62; Pulse 77; Resp 16 S; Pulse Ox 98% on R/A; ha1 15:29 Body Mass Index 21.08 (53.98 kg, 160.02 cm) ph MDM: 15:19 Patient medically screened. ec2 15:26 Data reviewed: vital signs. ED course: Patient arrives today for evaluation of chest ec2 pain. Examination remarkable for well-appearing nontoxic dividual is otherwise in no acute distress with a reassuring examination. Will obtain evaluation with EKG, chest x-ray, treat the patient symptoms. Differential diagnosis includes ACS, lower suspicion for PE or dissection. . 16:12 ED course: Chest x-ray independently reviewed and interpreted by me, shows no acute ec2 intrathoracic process. . 16:48 ED course: EKG obtained, dependently reviewed and interpreted by me, shows normal sinus ec2 rhythm, rate of 73, no acute assisting with elevations, intervals nonconcerning. . 17:30 ED course: Metabolic profile shows renal dysfunction with a creatinine of 2.14 and GFR ec2 25. CBC shows slight anemia. BNP elevated at 2300, troponin elevated at 137. Chest x-ray shows no acute intrathoracic process. Will start the patient on heparin drip, admit for NSTEMI. . 19:50 ED course: MDM: Differential diagnosis as documented above in ED course; All lab tests ec2 ordered and reviewed as documented above; Independent interpretation of tests: EKG as above; Parenteral controlled substances: Yes; Discuss inpatient hospitalization: Yes; I discussed the case with: Hospitalist . 01/03 15:19 Order name: Basic Metabolic Panel; Complete Time: 17:30 ec2 01/03 15:19 Order name: CBC with Diff; Complete Time: 17:30 ec2 01/03 15:19 Order name: NT PRO-BNP; Complete Time: 17:30 ec2 01/03 15:19 Order name: PT-INR; Complete Time: 17:30 ec2 01/03 15:19 Order name: Troponin HS; Complete Time: 17:30 ec2 01/03 15:26 Order name: TSH; Complete Time: 18:06 ec2 18 15:26 Order name: T4 Free; Complete Time: 18:06 ec2 01/03 17:31 Order name: Ptt, Activated; Complete Time: 18:06 ec2 01/03 21:19 Order name: Troponin High Sensitivity EDVT 01/03 21:19 Order name: Lipid Profile EDVT 01/04 02:00 Order name: CBC with Automated Diff EDVT 01/04 02:14 Order name: Basic Metabolic Panel EDVT 01/04 02:14 Order name: Phosphorus EDVT 01/04 02:14 Order name: Magnesium EDVT 01/04 02:15 Order name: Troponin High Sensitivity EDMS 01/03 15:19 Order name: XRAY Chest (1 view); Complete Time: 16:12 ec2 01/03 15:19 Order name: Cardiac monitoring; Complete Time: 16:53 ec2 01/03 15:19 Order name: EKG - Nurse/Tech; Complete Time: 16:53 ec2 01/03 15:19 Order name: IV Saline Lock; Complete Time: 16:53 ec2 01/03 15:19 Order name: Labs collected and sent; Complete Time: 16:53 ec2 01/03 15:19 Order name: O2 Per Protocol; Complete Time: 15:34 ec2 01/03 15:19 Order name: O2 Sat Monitoring; Complete Time: 15:34 ec2 Administered Medications: 15:35 CANCELLED (Physician Discretion): morphineor iv 4 mg IVP once over 4 mins ec2 16:52 Drug: Ondansetron IVP 4 mg IVP once; over 2 minutes Route: IVP; Site: left hand; ph 19:24 Follow up: Response: No adverse reaction ph 16:52 Drug: NS 0.9% IV 500 ml IV at bolus once Route: IV; Rate: bolus; Site: left hand; ph 17:30 Follow up: Response: No adverse reaction; IV Status: Completed infusion; IV Intake: ph 500ml 16:52 Drug: morphine IVP or IV 2 mg IVP once over 4 mins Route: IVP; Infused Over: 4 mins; ph Site: left hand; 19:23 Follow up: Response: No adverse reaction ph 17:30 Drug: NS 0.9% IV 500 ml IV at bolus once Route: IV; Rate: bolus; Site: left hand; ph 19:23 Follow up: Response: No adverse reaction; IV Status: Completed infusion; IV Intake: ph 500ml 17:30 Drug: morphine IVP or IV 2 mg IVP once over 4 mins Route: IVP; Infused Over: 4 mins; ph Site: left hand; 19:24 Follow up: Response: No adverse reaction ph 19:17 Drug: Heparin ([place] Drip) 12 units/kg/hr - ([place] [address] units, D5W IV 500 ml) IV at hb calculated rate Per protocol; Max initial rate 1000 units/hr {Co-Signature: ha1 (Kiesha Uribe RN).} Route: IV; Rate: calculated rate; Site: left hand; 19:24 Follow up: Response: No adverse reaction; IV Status: Infusion continued upon admission ph 19:17 Drug: Heparin ([place]-Bolus No thrombolytic) - HEParin IVP 60 units/kg IVP once; Max 5000 hb units {Co-Signature: ha1 (Kiesha Uribe RN).} Route: IVP; Site: left hand; 19:25 Follow up: Response: No adverse reaction ph Disposition: 17:31 Critical Care:. ec2 Disposition Summary: 01/04/24 17:32 Hospitalization Ordered Notes: Hospitalization Status: Inpatient Admission ec2 Provider: Khoa Lezama ec2 Condition: Stable ec2 Problem: new ec2 Symptoms: have improved ec2 Bed/Room Type: Standard ec2 Location: Telemetry/MedSurg (Inpatient)(01/05/24 11:50) bd Room Assignment: 221(01/05/24 11:50) bd Diagnosis - NSTEMI ec2 - Chest pain, unspecified ec2 Forms: - Medication Reconciliation Form ec2 - SBAR form ec2 - Leadership Thank You Letter ec2 Critical care time excluding procedures: 17:31 Critical care time: Bedside Care: 30 minutes, Consultation: 5 minutes. Total time: 35 ec2 minutes Signatures: Dispatcher [employer] EDMS Leana Pederson Patricia, LEANDER RN Leeanna Demarco, RN LEANDER Tony Knight MD MD ec2 Kiesha Uribe RN ha1 Corrections: (The following items were deleted from the chart) 15:20 15:20 Chest Single View+RAD.RAD.BRZ ordered. EDMS EDMS 15:32 15:31 PMHx: Depression; ph ph 15:32 15:31 PMHx: CHF (Hypothyroidism); ph ph 15:35 15:19 morphine IVP or IV 4 mg IVP once over 4 mins ordered. ec2 ec2 18:47 17:32 Telemetry/MedSurg (Inpatient) ec2 bd 18:47 17:32 ec2 bd 01/04 11:50 01/03 18:47 [facility] ER HOLD bd bd 01/04 11:50 01/03 18:47 ERHOLD- bd bd
--- NOTE | 2024-01-04 18:14 | ER ---
Nurse's Notes [facility] Name: Sophia Palacios Age: 63 yrs Sex: Female : 1960 Arrival Date: 01/04/2024 Time: 15:16 Bed 23 Private MD: Diagnosis: NSTEMI;Chest pain, unspecified Presentation: 01/03 15:29 Chief complaint: EMS states: Pt c/o chest pain since last night, mid-sternal CP that ph radiates to jaw, also reports fatigue, nausea, and SOB, was dx w/ irregular heart beat approx 1 week ago. Coronavirus screen: Vaccine status: Patient reports receiving the 2nd dose of the covid vaccine. Ebola Screen: No symptoms or risks identified at this time. Initial Sepsis Screen: Does the patient meet any 2 criteria? No. Patient's initial sepsis screen is negative. Does the patient have a suspected source of infection? No. Patient's initial sepsis screen is negative. Risk Assessment: Do you want to hurt yourself or someone else? Patient reports no desire to harm self or others. Onset of symptoms was January 04, 2024. 15:29 Method Of Arrival: EMS: [facility] 15:29 Acuity: MARU 2 ph Triage Assessment: 15:32 General: Appears in no apparent distress. Behavior is calm, cooperative. Pain: ph Complains of pain in chest Pain radiates to left jaw. Neuro: Level of Consciousness is awake, alert, obeys commands, Oriented to person, place, time, situation. Cardiovascular: Reports chest pain, fatigue, lightheadedness, nausea, shortness of breath, Capillary refill < 3 seconds in bilateral fingers Patient's skin is warm and dry. Respiratory: Airway is patent Respiratory effort is even, unlabored. Derm: Skin is pink, warm \T\ dry. Historical: - Allergies: 15:31 PENICILLINS; ph 15:31 Zofran; ph - PMHx: 15:31 Anxiety; Bipolar disorder; Depression; ESRD; Headaches; Hypertension; Hypothyroidism; ph Congestive heart failure; - Immunization history:: Adult Immunizations unknown. - Infectious Disease History:: Denies. - Social history:: Smoking status: Patient reports the use of cigarette tobacco products, denies chronic smoking, but will smoke occasionally. Screenin:33 [facility] ED Fall Risk Assessment (Adult) History of falling in the last 3 months, ph including since admission No falls in past 3 months (0 pts) Confusion or Disorientation No (0 pts) Intoxicated or Sedated No (0 pts) Impaired Gait No (0 pts) Mobility Assist Device Used No (0 pt) Altered Elimination No (0 pt) Score/Fall Risk Level 0 - 2 = Low Risk Oriented to surroundings, Maintained a safe environment, Hourly rounding (assess needs \T\ fall precautionary measures) done. Abuse screen: Denies threats or abuse. Denies injuries from another. Nutritional screening: No deficits noted. Tuberculosis screening: No symptoms or risk factors identified. Assessment: 16:55 General: SEE TRIAGE ASSESSMENT. ph 17:38 Reassessment: Patient appears in no apparent distress at this time. Patient and/or hb family updated on plan of care and expected duration. Pain level reassessed. Patient is alert, oriented x 3, equal unlabored respirations, skin warm/dry/pink. 19:10 General: Appears comfortable, Behavior is calm, cooperative. Pain: Denies pain. Neuro: ha1 Level of Consciousness is awake, alert, obeys commands, Oriented to person, place, time, situation. Cardiovascular: Capillary refill < 3 seconds Patient's skin is warm and dry. Cardiovascular: Heart tones S1 S2 present Rhythm is sinus rhythm. Respiratory: Airway is patent Trachea midline Respiratory effort is even, unlabored, Respiratory pattern is regular, symmetrical. GI: No signs and/or symptoms were reported involving the gastrointestinal system. GI: Abdomen is round non-distended. : No signs and/or symptoms were reported regarding the genitourinary system. Derm: Skin is pink, warm \T\ dry. Musculoskeletal: Circulation, motion, and sensation intact. Range of motion: intact in all extremities. 19:23 Pain: Pain began lst night. bm8 Vital Signs: 15:29 BP 100 / 64; Pulse 81; Resp 18; Temp 97.4; Pulse Ox 99% on R/A; Weight 53.98 kg; Height ph 5 ft. 3 in. ; 16:55 BP 103 / 75; Pulse 77; Resp 18; Pulse Ox 94% on 2 lpm NC; ph 17:38 BP 94 / 68; Pulse 77; Resp 17; Pulse Ox 100% ; hb 19:15 BP 89 / 62; Pulse 77; Resp 16 S; Pulse Ox 98% on R/A; ha1 15:29 Body Mass Index 21.08 (53.98 kg, 160.02 cm) ph Vitals: 16:55 Cardiac Rhythm Assessment Sinus rhythm. ph ED Course: 15:19 Patient arrived in ED. ec2 15:19 Tony Knight MD is Attending Physician. ec2 15:29 Bobbi Barber, RN is Primary Nurse. ph 15:31 Triage completed. ph 15:32 Arm band placed on Patient placed in an exam room, on a stretcher. ph 15:33 Patient has correct armband on for positive identification. Bed in low position. Call ph light in reach. Side rails up X 1. Client placed on continuous cardiac and pulse oximetry monitoring. NIBP monitoring applied. hospital monitor on. Door closed. Noise minimized. Warm blanket given. 15:34 O2 via room air. ph 15:49 Missed attempt(s): 22 gauge in left in right forearm. iw 15:49 Missed attempt(s): Bleeding controlled, band aid applied, catheter tip intact. iw 15:51 XRAY Chest (1 view) In Process Unspecified. EDMS 16:53 No provider procedures requiring assistance completed. ph 16:54 Initial lab(s) drawn, by sd, sent to lab. EKG done. Inserted saline lock: 22 gauge in ph left hand, using aseptic technique. Blood collected. 17:31 Syed Nieves MD is Hospitalizing Provider. ec2 17:32 Hospitalizing Provider role handed off by Syed Nieves MD ec2 17:32 Khoa Lezama is Hospitalizing Provider. ec2 18:01 Inserted saline lock:. Inserted saline lock: 22 gauge in left forearm, using aseptic ph technique. 19:00 Report received from LEANDER Durán. ha1 19:23 Provided Education on: need for admission. bm8 19:23 Patient admitted, IV remains in place. ph Administered Medications: 15:35 CANCELLED (Physician Discretion): morphineor iv 4 mg IVP once over 4 mins ec2 16:52 Drug: Ondansetron IVP 4 mg IVP once; over 2 minutes Route: IVP; Site: left hand; ph 19:24 Follow up: Response: No adverse reaction ph 16:52 Drug: NS 0.9% IV 500 ml IV at bolus once Route: IV; Rate: bolus; Site: left hand; ph 17:30 Follow up: Response: No adverse reaction; IV Status: Completed infusion; IV Intake: ph 500ml 16:52 Drug: morphine IVP or IV 2 mg IVP once over 4 mins Route: IVP; Infused Over: 4 mins; ph Site: left hand; 19:23 Follow up: Response: No adverse reaction ph 17:30 Drug: NS 0.9% IV 500 ml IV at bolus once Route: IV; Rate: bolus; Site: left hand; ph 19:23 Follow up: Response: No adverse reaction; IV Status: Completed infusion; IV Intake: ph 500ml 17:30 Drug: morphine IVP or IV 2 mg IVP once over 4 mins Route: IVP; Infused Over: 4 mins; ph Site: left hand; 19:24 Follow up: Response: No adverse reaction ph 19:17 Drug: Heparin ([place] Drip) 12 units/kg/[place] - ([place] [address] units, D5W IV 500 ml) IV at hb calculated rate Per protocol; Max initial rate 1000 units/hr {Co-Signature: renetta (Kiesha Uribe RN).} Route: IV; Rate: calculated rate; Site: left hand; 19:24 Follow up: Response: No adverse reaction; IV Status: Infusion continued upon admission ph 19:17 Drug: Heparin ([place]-Bolus No thrombolytic) - HEParin IVP 60 units/kg IVP once; Max 5000 hb units {Co-Signature: renetta (Kiesha Uribe RN).} Route: IVP; Site: left hand; 19:25 Follow up: Response: No adverse reaction ph Medication: 16:53 VIS not applicable for this client. ph Intake: 17:30 IV: 500ml; Total: 500ml. ph 19:23 IV: 500ml; Total: 1000ml. ph Outcome: 17:32 Decision to Hospitalize by Provider. ec2 19:23 Admitted to ER Hold. Please see [facility] for further documentation. ph 19:23 Condition: good 19:23 Instructed on the need for admit, 01/04 12:43 Patient left the ED. ko1 Signatures: Dispatcher [employer] Emma Millan RN RN Bobbi Barber RN RN Leeanna Demarco RN RN Kiesha Uribe RN RN ha1 Oliver, Kathy, RN RN ko1 Corral, Edwin, MD MD ec2 Jona Nation RN RN bm8 Kiesha Uribe RN ha1 Corrections: (The following items were deleted from the chart) 01/03 15:32 15:31 PMHx: Depression; ph ph :32 15:31 PMHx: CHF (Hypothyroidism); ph ph
--- NOTE | 2024-01-04 19:58 | P.HP ---
Certification for Inpatient Patient admitted to: Observation With expected LOS: <2 Midnights Practitioner: I am a practitioner with admitting privileges, knowledge of patient current condition, hospital course, and medical plan of care. Services: Services provided to patient in accordance with Admission requirements found in Title 42 Section 412.3 of the Code of Federal Regulations Patient History Date of Service: 01/04/24 Reason for admission: Chest pain History of Present Illness: 63-year-old woman with a history of congestive heart failure, hypothyroidism, GERD s/p Fatuma's fundoplication and hypertension presented to the emergency department with a complaint of chest pain of 1 day duration. Patient describes anterior chest pain, radiating to the neck area, associated shortness of breath, no diaphoresis, no known relieving or aggravating factors, no palpitation, onset at rest. Patient reports fatigue of about 1 months duration. She reports noncompliant with her thyroid medication for about 1 year. She denies any cough or orthopnea. Patient was assessed in the emergency department. Blood work showed mildly elevated troponin, EKG unremarkable shows no ischemic changes. Chest x-ray showed no acute changes. Patient is hospitalized for further management NSTEMI. Allergies ondansetron HCl [From Zofran (as hydrochloride)] Allergy (Verified 07/11/23 09:44) Unknown Penicillins Allergy (Verified 07/11/23 09:44) Unknown Home Medications: Metoprolol Tartrate [Lopressor*] 100 mg PO BID 07/23/13 Aspirin Chewable [Aspirin Chewable*] 81 mg PO DAILY #30 tab.chew 04/19/14 Amlodipine [Norvasc*] 10 mg PO DAILY 10/13/14 Citalopram [Celexa*] 10 mg PO DAILY 10/13/14 Trazodone HCl 100 mg PO DAILY 07/10/23 Atorvastatin Calcium [Lipitor] 40 mg PO BEDTIME #30 tab 07/14/23 Furosemide [Lasix] 20 mg PO BIDL #60 tab 07/14/23 Hydrocodone 10/APAP 325 [Warren 10/325] 1 tab PO Q6H PRN #30 tab 07/14/23 Potassium Chloride 10 meq PO DAILY #60 tab 07/14/23 - Past Medical/Surgical History Diabetic: No -: depression -: bipolar -: htn -: hypothyroidism -: chronic renal failure -: anxiety -: migraines -: hysterectomy -: tubal ligation -: gastric bypass -: bilateral tubal -: fatuma funduplication - Family History Family History: Reviewed- Non-Contributory - Social History Smoking Status: Never smoker Alcohol use: No CD- Drugs: No Caffeine use: No Review of Systems Other: Patient denied any fever. She endorsed intermittent nonproductive cough. She denied any abdominal pain or nausea or vomiting. Except as documented, all other systems reviewed and negative. Physical Examination - Physical Exam General: Alert, In no apparent distress, Oriented x3 HEENT: Atraumatic, Mucous membr. moist/pink, Sclerae nonicteric Neck: Supple, JVD not distended Respiratory: Clear to auscultation bilaterally, Normal air movement Cardiovascular: No edema, Regular rate/rhythm, Normal S1 S2 Gastrointestinal: Normal bowel sounds, Soft and benign, Non-distended, No tenderness Musculoskeletal: No swelling Integumentary: No rashes, No cyanosis Neurological: Normal speech, Normal strength at 5/5 x4 extr, Cranial nerves 3-12 intact Lymphatics: No axilla or inguinal lymphadenopathy - Studies Laboratory Data (last 24 hrs) 01/04/24 01/04/24 01/04/24 16:35 16:35 16:35 WBC 6.70 Hgb 9.4 L Hct 27.3 L Plt Count 192 PT 11.9 INR 1.08 APTT 35.3 Sodium Potassium BUN Creatinine Glucose 01/04/24 16:35 WBC Hgb Hct Plt Count PT INR APTT Sodium 137 Potassium 3.7 BUN 33 H Creatinine 2.14 H Glucose 168 H Assessment and Plan - Problems (Diagnosis) (1) Hypothyroidism Current Visit: Yes Status: Acute (2) NSTEMI (non-ST elevated myocardial infarction) Current Visit: Yes Status: Acute (3) Chest pain Current Visit: No Status: Acute - Plan Chest pain NSTEMI Place patient under observation. Trend troponin. Start full dose Lovenox Beta-lizz as his BP will tolerate Aspirin Obtain echocardiogram Cardiology consult. Hypothyroidism Patient reports noncompliance to medications. She states that she just got the taking her Synthroid 100 mcg daily again. Recheck TSH in 8 weeks. Acute on chronic kidney disease stage III Briefly hydrated with IV fluid. Monitor renal function DVT prophylaxis: Lovenox CODE STATUS: Full code - Advance Directives Does patient have a Living Will: No Does patient have a Durable POA for Healthcare: No
[2024-01-04 21:19] LABS: Troponin High Sensitivity 186.4 pg/mL (<58.9)
[2024-01-04 21:53] VITALS: BMI 20.9
[2024-01-04] MEDS: TRAZODONE 50 MG TABLET PO SCH (23:27)
[2024-01-05] MEDS ORDERED: ONDANSETRON 4 MG/2 ML VIAL ONE (01:00)
[2024-01-05] MEDS ORDERED: MORPHINE 2 MG/ML SYR ONE (01:00)
[2024-01-05] MEDS ORDERED: ENOXAPARIN 60 MG/0.6 ML SQ ONE (01:01)
[2024-01-05] MEDS: ENOXAPARIN 60 MG/0.6 ML SQ SCH (01:15)
[2024-01-05] MEDS: MORPHINE 4 MG/ML SYR IV PRN (01:25)
[2024-01-05] MEDS: ONDANSETRON 4 MG/2 ML VIAL IV PRN (01:27)
[2024-01-05] MEDS ORDERED: TRAZODONE 50 MG TABLET ONE (01:38)
[2024-01-05 01:54] LABS: Absolute Basophils 0.1 K/uL (0-0.5); Absolute Lymphocytes (CBC) 2.5 K/uL (0.7-4.9); Absolute Monocytes 0.4 K/uL (0.1-1.3); Absolute Neutrophil 6.6 K/uL (1.8-8.0); Basophils % 0.8 % (0-1.3); Eosinophils % 0.2 % (0-4.4); Hematocrit 28.7 % (36.0-45.0); Hemoglobin 9.6 g/dL (12.0-15.0); Lymphocytes % 26.5 % (15.3-44.8); MCH 31.8 pg (27.0-35.0); MCHC 33.6 g/dL (32.0-36.0); MCV 94.7 fL (80-100); MPV 8.8 fL (7.6-11.3); Monocytes % 3.8 % (3.3-12.3); Neutrophils % 68.7 % (41.7-73.7); Platelets 192 thou/uL (152-406); RBC Red Blood Cell Count 3.03 M/uL (3.86-4.86); Red Cell Distribution Width 14.2 % (12.1-15.2)
[2024-01-05 02:10] LABS: Anion Gap 8.5 mEq/L (5.0-15.0); Magnesium 2.3 mg/dL (1.6-2.4); Phosphorus 3.3 mg/dL (2.5-4.9); Potassium 4.5 mEq/L (3.5-5.1)
[2024-01-05] MEDS: CITALOPRAM 10 MG TABLET PO SCH (02:19)
[2024-01-05] MEDS: LEVOTHYROXINE SOD 0.1 MG TAB PO SCH (06:00)
[2024-01-05] MEDS: NA CHLORIDE 0.9% 1,000 ML IV SCH (07:00)
--- NOTE | 2024-01-05 07:22 | P.PN ---
Date of Service: 01/05/24 Subjective: chest pain unchanged, some relief for ~10min, then back for ~20min, radiates to jaw this afternoon started to have worsening shortness of breath, hypoxia, cough felt some postnasal drip and congestion no edema ROS: 10 point ROS as noted above, otherwise negative Physical Exam: GEN: Alert, oriented, NAD HEENT: Normal conjunctiva, sclera anicteric CV: Regular rate and rhythm, no edema Pulm: Nonlabored respirations on 6L NC, b/l crackles ABD: Soft, nontender, nondistended Integumentary: No rashes Neuro: Normal speech, normal affect vitals reviewed Problem List: NSTEMI acute on Chronic CHF (HFrEF) acute hypoxemic respiratory failure ANGELY on CKD3 Hypothyroidism Hypertension GERD s/p West Fundoplication Depression/Anxiety/Bipolar disorder NSTEMI Chronic CHF (HFrEF) acute hypoxemic respiratory failure reports anterior chest pain radiating to neck. +shortness of breath. CXR negative for any acute findings Most recent echo (07/10/23): 32% EF, severe global hypokinesis, mild TR/MR echo ordered to reeval EF / stenosis Cardiology consulted - plan for cath in AM given therapeutic lovenox last night, will switch to heparin drip trend troponins, monitor on telemetry suspect hypoxia secondary to pulm edema, give lasix x1, BP improved ANGELY on CKD3 Creatinine 2.14 on admission continue IV fluids Continue to monitor renal function improving Hypothyroidism Reports noncompliance with synthroid for ~1 year. Only just recently restarted her thyroid medication. TSH 78.2, free t4 0.44 continue synthroid 0.1 mg daily recheck thyroid studies in ~2 months Hypertension GERD s/p West Fundoplication confirm home meds, restart as appropriate Depression/Anxiety/Bipolar disorder resume home trazodone, celexa VTE: Lovenox Code: Full Dispo: Home, ~2 days Pending cardiac recs / renal function improves
[2024-01-05] MEDS ORDERED: NA CHLORIDE 0.9% 1,000 ML ONE (08:04)
[2024-01-05] MEDS ORDERED: ASPIRIN EC 81 MG TAB PO ONE (08:04)
[2024-01-05] MEDS ORDERED: LEVOTHYROXINE SOD 0.05 MG TABLET ONE (08:17)
[2024-01-05] MEDS: ASPIRIN EC 81 MG TAB PO SCH (08:36)
[2024-01-05] MEDS ORDERED: MORPHINE 4 MG/ML SYR ONE (09:35)
[2024-01-05] MEDS: BENZONATATE 100 MG CAP PO PRN (15:54)
[2024-01-05] MEDS: HYDROCODONE/APAP 5/325 MG TAB PO PRN (15:54)
--- NOTE | 2024-01-05 16:51 | P.CNS ---
Date of Consult: 01/05/24 Chief Complaint: Chest pain History of Present Illness: Patient with PMH of congestive systolic heart failure, GERD presented with fatigue, weakness and epigastric pain that radiate all the way to her neck that started yesterday, she report that she has been having poor oral intake too, also report SOB, no other cardiac symptoms. Allergies ondansetron HCl [From Zofran (as hydrochloride)] Allergy (Verified 07/11/23 09:44) Unknown Penicillins Allergy (Verified 07/11/23 09:44) Unknown Home Medications: Citalopram [Celexa*] 10 mg PO DAILY 10/13/14 Trazodone HCl 100 mg PO DAILY 07/10/23 Levothyroxine [Synthroid] 100 mcg PO [id number] 01/04/24 - Past Medical/Surgical History Diabetic: No -: depression -: bipolar -: htn -: hypothyroidism -: chronic renal failure -: anxiety -: migraines -: hysterectomy -: tubal ligation -: gastric bypass -: bilateral tubal -: fatuma funduplication - Social History Smoking Status: Current some day smoker Alcohol use: No CD- Drugs: No Caffeine use: No Review of Systems 10-point ROS is otherwise unremarkable Physical Examination Temp Pulse Resp BP Pulse Ox 97.7 F 90 17 130/62 89 L 01/05/24 16:00 01/05/24 16:00 01/05/24 16:00 01/05/24 16:00 01/05/24 16:00 General: Alert, In no apparent distress HEENT: Atraumatic, PERRLA, Mucous membr. moist/pink, EOMI, Sclerae nonicteric Neck: Supple, 2+ carotid pulse no bruit, No LAD, Without JVD or thyroid abnormality Respiratory: Clear to auscultation bilaterally, Normal air movement Cardiovascular: Regular rate/rhythm, Normal S1 S2 Gastrointestinal: Normal bowel sounds, No tenderness Musculoskeletal: No tenderness Integumentary: No rashes Neurological: Normal gait, Normal speech, Normal tone, Normal affect Lymphatics: No axilla or inguinal lymphadenopathy Laboratory Data (last 24 hrs) 01/04/24 01/04/24 01/04/24 16:35 16:35 16:35 WBC 6.70 Hgb 9.4 L Hct 27.3 L Plt Count 192 PT 11.9 INR 1.08 APTT 35.3 Sodium Potassium BUN Creatinine Glucose 01/04/24 16:35 WBC Hgb Hct Plt Count PT INR APTT Sodium 137 Potassium 3.7 BUN 33 H Creatinine 2.14 H Glucose 168 H - Problems (1) Chronic systolic heart failure Current Visit: Yes Status: Acute Plan: Patient looks volume overloaded on exam with crackles although no lower extremity swelling. Start Lasix 20 mg IV BID Monitor input and output. Monitor and correct electrolytes. (2) Hyperlipidemia Current Visit: Yes Status: Acute Plan: start patient on Lipitor 40 mg daily Lipid panel in 3 months. (3) NSTEMI (non-ST elevated myocardial infarction) Current Visit: Yes Status: Acute Plan: continue to trend enzymes until peak then trending down. NPO after midnight for coronary angiogram in am ASA 81 mg daily Heparin drip.
[2024-01-05] MEDS: ENSURE ENLIVE 237 ML CAN PO SCH (17:00)
[2024-01-05] MEDS: FUROSEMIDE 20 MG/ 2ML VIAL IV ONE (17:23)
--- NOTE | 2024-01-05 18:47 | RAD REPORT ---
[facility] 2:44 [facility] CLINICAL HISTORY: hypoxia, cough COMPARISON: Chest Single View dated 01/04/2024; Chest Single View dated 07/10/2023; Chest Single View dated 10/17/2015; CHEST SINGLE VIEW dated 02/24/2015 TECHNIQUE: Portable AP view of the chest. FINDINGS: Central predominant fluffy opacities, with trace right minor fissure effusion. No pneumot horax or effusion. The cardiomediastinal contours are unremarkable. IMPRESSION: Findings suggestive of pulmonary edema.
--- NOTE | 2024-01-05 19:31 | P.CNS ---
Date of Consult: 01/05/24 Reason for Consult: ANGELY Requesting Physician: Eulalio Velázquez Chief Complaint: Chest pain History of Present Illness: 63-year-old woman with a history of congestive heart failure, hypothyroidism, GERD s/p Fatuma's fundoplication and hypertension presented to the emergency department with a complaint of chest pain of 1 day duration. Patient describes anterior chest pain, radiating to the neck area, associated shortness of breath, no diaphoresis, no known relieving or aggravating factors, no palpitation, onset at rest. Patient reports fatigue of about 1 months duration. She reports noncompliant with her thyroid medication for about 1 year. She denies any cough or orthopnea. Patient was assessed in the emergency department. Blood work showed mildly elevated troponin, EKG unremarkable shows no ischemic changes. Chest x-ray showed no acute changes. Patient is hospitalized for further management NSTEMI. 15:25 This 63 yrs old Female presents to ER via Unassigned with complaints of Chest ec2 Pain. 15:25 Patient arrives today for evaluation of chest pain. Patient reports chest pain ongoing ec2 throughout the night. Patient reports that his chest pain goes from her lower chest and upper chest. Patient reports no specific alleviating or exacerbating factors. Cough. Malaise. She reports not drinking much water with relative poor urine output. She reports taking 2 daily Motrin for some time. Allergies ondansetron HCl [From Zofran (as hydrochloride)] Allergy (Verified 07/11/23 09:44) Unknown Penicillins Allergy (Verified 07/11/23 09:44) Unknown Home medications list reviewed: Yes Home Medications: Citalopram [Celexa*] 10 mg PO DAILY 10/13/14 Trazodone HCl 100 mg PO DAILY 07/10/23 Levothyroxine [Synthroid] 100 mcg PO [id number] 01/04/24 - Past Medical/Surgical History Diabetic: No -: Bipolar/ Depression/ Anxiety -: HTN -: Hypothyroidism -: CKD -: Migraines -: hysterectomy -: tubal ligation -: gastric bypass -: bilateral tubal -: fatuma funduplication - Social History Smoking Status: Current some day smoker Alcohol use: No CD- Drugs: No Caffeine use: No Review of Systems 10-point ROS is otherwise unremarkable General: Weakness, Malaise Respiratory: Cough Physical Examination Temp Pulse Resp BP Pulse Ox 97.7 F 91 H 17 94/64 89 L 01/05/24 16:00 01/05/24 18:20 01/05/24 16:00 01/05/24 18:20 01/05/24 16:00 General: Oriented x3, Cooperative, Mild distress HEENT: Atraumatic Neck: Supple Respiratory: Rhonchi/gurgles Cardiovascular: No edema, Regular rate/rhythm Gastrointestinal: Soft and benign, Non-distended Musculoskeletal: No clubbing, No contractures Integumentary: No rashes, No cyanosis Neurological: Normal speech Laboratory Data (last 24 hrs) 01/05/24 01/05/24 01/04/24 01:13 01:13 20:30 WBC 9.60 Hgb 9.6 L Hct 28.7 L Plt Count 192 Sodium 139 Potassium 4.5 D BUN 31 H Creatinine 1.93 H Glucose 105 Phosphorus 3.3 Magnesium 2.3 Triglycerides 142 Cholesterol 405 H HDL Cholesterol 67 H Cholesterol/HDL Ratio 6.04 Imagings Data: EXAM DESCRIPTION: [facility] Single View01/05/2024 2:44 pm CLINICAL HISTORY: hypoxia, cough COMPARISON: Chest Single View dated 01/04/2024; Chest Single View dated 07/10/2023; Chest Single View dated 10/17/2015; CHEST SINGLE VIEW dated 02/24/2015 TECHNIQUE: Portable AP view of the chest. FINDINGS: Central predominant fluffy opacities, with trace right minor fissure effusion. No pneumothorax or effusion. The cardiomediastinal contours are unremarkable. IMPRESSION: Findings suggestive of pulmonary edema. EXAM DESCRIPTION: RAD - Chest Single View - 01/04/2024 3:49 pm CLINICAL HISTORY: CHEST PAIN Chest pain. COMPARISON: Chest Single View dated 07/10/2023; Chest Single View dated 10/17/2015; CHEST SINGLE VIEW dated 02/24/2015; CHEST SINGLE VIEW dated 12/22/2014 FINDINGS: Portable technique limits examination quality. The lungs are grossly clear. The heart is mildly enlarged in size. No displaced fractures. IMPRESSION: No acute intrathoracic process suspected. Conclusions/Impression: Stage I ANGELY in the setting of chronic ibuprofen complicated by hypotension CKD IIIb -No NSAIDs HTN with CKD complicated by hypotension in the setting of ACS -Hold antihypertensives at this time Anemia in chronic illness -Monitor H&H CAD/ NSTEMI -Cardiology following -Heparin gtt Hospitalist and ER notes reviewed Thank you kindly for the consultation
[2024-01-05 19:55] LABS: PT Prothrombin Time 11.3 SECONDS (9.5-12.5); PTT, Activated Partial Thromb 16.6 SECONDS (24.3-36.9); Protime INR 1.03
[2024-01-05] MEDS: FUROSEMIDE 20 MG TABLET PO ONE (20:13)
[2024-01-05] MEDS: HEPARIN/D5W 25,000 UNIT/500 ML BAG IV PRN (20:29)
--- NOTE | 2024-01-05 21:19 | P.PN ---
Date of Service: 01/05/24 Chart reviewed, trending down low BP, history of severe hypothyroidism due to noncompliance of medication now with acute coronary syndrome with worsening troponin after restarted on Synthroid. Likely suspected concurrent hypoadrenalism, will start patient on empirical IV hydrocortisone Follow cortisol and ACTH
[2024-01-05] MEDS: GUAIFENESIN 600 MG SA TAB PO SCH (21:31)
[2024-01-05] MEDS: HYDROCORTISONE SUC 100 MG INJ IV SCH (21:33)
[2024-01-05] MEDS: FUROSEMIDE 40 MG/4 ML VIAL IV ONE (21:50)
[2024-01-05] MEDS: MIDODRINE HCL 5 MG TABLET PO ONE (22:21)
[2024-01-05] MEDS: ALBUTEROL 2.5 MG/3 ML NEB SOL NEB PRN (22:34)
[2024-01-05] MEDS: IPRATROPIUM BROM 0.5MG/2.5ML NEB PRN (22:34)
[2024-01-06 06:47] LABS: Absolute Lymphocytes (CBC) 1.2 K/uL (0.7-4.9); Absolute Monocytes 0.4 K/uL (0.1-1.3); Absolute Neutrophil 13.2 K/uL (1.8-8.0); Basophils % 0.2 % (0-1.3); Hematocrit 28.9 % (36.0-45.0); Hemoglobin 9.6 g/dL (12.0-15.0); Lymphocytes % 8.1 % (15.3-44.8); MCH 31.4 pg (27.0-35.0); MCHC 33.2 g/dL (32.0-36.0); MCV 94.7 fL (80-100); MPV 8.5 fL (7.6-11.3); Monocytes % 2.8 % (3.3-12.3); Neutrophils % 88.9 % (41.7-73.7); Platelets 199 thou/uL (152-406); RBC Red Blood Cell Count 3.05 M/uL (3.86-4.86); Red Cell Distribution Width 14.1 % (12.1-15.2)
[2024-01-06 07:06] LABS: Anion Gap 8.4 mEq/L (5.0-15.0); Magnesium 2.1 mg/dL (1.6-2.4); Potassium 4.4 mEq/L (3.5-5.1)
[2024-01-06] MEDS: NA CHLORIDE 0.9% 500 ML ONE (07:47)
[2024-01-06 08:46] LABS: Band Neutrophils 1 % (0-1); Differential Total Cells Count 100; Lymphocytes 8 % (15-42); Monocytes 3 % (0-10); Segmented Neutrophils 88 % (40-80); White Blood Cell Scan OK (OK)
[2024-01-06 08:47] LABS: Blood Morphology Comment NOT SEEN (NOT SEEN); Platelet Estimate ADEQ
[2024-01-06] MEDS ORDERED: GUAIFENESIN 600 MG SA TAB PO SCH (09:00)
[2024-01-06] MEDS ORDERED: VERAPAMIL HCL 10 MG/4 ML VIAL IV ONE (09:11)
[2024-01-06] MEDS ORDERED: MIDAZOLAM HCL 2 MG/2 ML INJ ONE (09:11)
[2024-01-06] MEDS ORDERED: LIDOCAINE 1% 20 ML MDV ONE (09:11)
[2024-01-06] MEDS ORDERED: HEPARIN 5000 UNIT/ML 1 ML VIAL ONE (09:11)
[2024-01-06] MEDS ORDERED: TICAGRELOR 90 MG TABLET PO ONE (09:11)
[2024-01-06] MEDS ORDERED: FENTANYL CITR 100 MCG/2 ML ONE (09:11)
[2024-01-06] MEDS ORDERED: HEPA 1000U/500MLS 1,000 UNIT/500 ML BAG IV ONE (09:11)
[2024-01-06] MEDS ORDERED: ATROPINE SULF 1 MG/10 ML SYR IV ONE (09:11)
[2024-01-06] MEDS ORDERED: CLOPIDOGREL 75 MG TABLET ONE (09:12)
[2024-01-06] MEDS ORDERED: ASPIRIN 325 MG TAB ONE (09:12)
[2024-01-06] MEDS ORDERED: HEPARIN 10,000 UNIT/10 ML VIAL IV ONE (09:12)
[2024-01-06] MEDS ORDERED: FLUMAZENIL 0.1 MG/ML (5 mL VIAL) IV ONE (09:12)
[2024-01-06] MEDS ORDERED: NALOXONE 0.4 MG/ML VIAL ONE (09:12)
--- NOTE | 2024-01-06 09:17 | RAD REPORT ---
EXAM DESCRIPTION: [facility] 5:47 am CLINICAL HISTORY: f/u opacities COMPARISON: 01/04/2024 and 01/05/2024 TECHNIQUE: Portable AP view of the chest. FINDINGS: Mild partial improvement of central fluffy and interstitial opacities. No pneumothorax or effusion. The cardiomediastinal contours are unremarkable. IMPRESSION: Mild interval improvement of pulmonary edema as above.
--- NOTE | 2024-01-06 11:15 | P.PN ---
Subjective Date of Service: 01/06/24 Chief Complaint: Chest pain Subjective: No new changes, No C/O voiced, Tolerating diet, Ambulating, Improving Review of Systems 10-point ROS is otherwise unremarkable Physical Examination - Vital Signs Temperature: 98.4 F Blood Pressure: 113/63 Pulse: 71 Respirations: 18 Pulse Ox (%): 99 - Physical Exam General: Alert, In no apparent distress HEENT: Atraumatic, PERRLA, EOMI Neck: Supple, JVD not distended Respiratory: Clear to auscultation bilaterally, Normal air movement Cardiovascular: Regular rate/rhythm, Normal S1 S2 Gastrointestinal: Normal bowel sounds, No tenderness Musculoskeletal: No tenderness Integumentary: No rashes Neurological: Normal speech, Normal tone, Normal affect Lymphatics: No axilla or inguinal lymphadenopathy - Studies Medications List Reviewed: Yes Assessment And Plan - Current Problems (Diagnosis) (1) Chronic systolic heart failure Current Visit: Yes Status: Acute Plan: Patient looks volume overloaded on exam with crackles although no lower extremity swelling. Start Lasix 20 mg IV BID Monitor input and output. Monitor and correct electrolytes. (2) Hyperlipidemia Current Visit: Yes Status: Acute Plan: start patient on Lipitor 40 mg daily Lipid panel in 3 months. (3) NSTEMI (non-ST elevated myocardial infarction) Current Visit: Yes Status: Acute Plan: coronary angiogram shows significant LAD and RCA disease, Emergent transfer for inpatient CABG. ASA 81 mg daily Heparin drip.
--- NOTE | 2024-01-06 11:18 | P.PN ---
Date of Service: 01/06/24 Subjective: ROS: 10 point ROS as noted above, otherwise negative Physical Exam: GEN: Alert, oriented, NAD HEENT: Normal conjunctiva, sclera anicteric CV: Regular rate and rhythm, no edema Pulm: Nonlabored respirations on 10L NC, b/l crackles ABD: Soft, nontender, nondistended Integumentary: No rashes Neuro: Normal speech, normal affect vitals reviewed Problem List: NSTEMI acute on Chronic CHF (HFrEF) acute hypoxemic respiratory failure ANGELY on CKD3 Hypothyroidism Hyperlipidemia Hypertension GERD s/p West Fundoplication Depression/Anxiety/Bipolar disorder NSTEMI acute on Chronic CHF (HFrEF) acute hypoxemic respiratory failure reports anterior chest pain radiating to neck. +shortness of breath. Most recent echo (07/10/23): 32% EF, severe global hypokinesis, mild TR/MR CXR (01/04): Pulmonary edema repeat CXR (01/05):mild interval improvement of pulmonary edema suspect hypoxia secondary to pulm edema, give lasix x1 (01/04), BP improved Troponins trending up 2180 -> 5242 (01/05) Cardiology consulted s/p [facility] - found to have significant LAD and RCA disease. Dr. Torres recommending transfer to tertiary level of care facility for inpatient CABG echo ordered to reeval EF / stenosis Lovenox switched to heparin drip 01/04 continue aspirin 81 mg started on IV solu-cortef overnight given concern for hypoadrenalism. cortisol levels 21.02. ACTH pending ANGELY on CKD3 IV fluids dc'd (01/04) given IV lasix 20 mg x1 (01/04) Continue to monitor renal function Hypothyroidism Reports noncompliance with synthroid for ~1 year. Only just recently restarted her thyroid medication. TSH 78.2, free t4 0.44 continue synthroid 0.1 mg daily recheck thyroid studies in ~2 months Hyperlipidemia Start statin 40 mg recheck lipid panel in ~3 months Hypertension GERD s/p West Fundoplication confirm home meds, restart as appropriate Depression/Anxiety/Bipolar disorder resume home trazodone, celexa VTE: Lovenox Code: Full Dispo: Cardiology recommending transfer to tertiary level of care facility for inpatient CABG; initiated 01/05
--- NOTE | 2024-01-06 11:26 | OP ---
Date of Procedure: 01/06/2024 Surgeon: Connor Torres Procedures Performed: Left heart catheterizations and selective coronary angiogram. Indication For Procedure: Non-ST elevation KS. Complications: None. Sedation Time: 20 minutes with 1 of Versed and 25 fentanyl. Estimated Blood Loss: Less than 50 cc. Access: Right radial, closed by TR band. Description Of Procedure: After risks, benefits, and alternatives were explained to patient, patient agreed to proceed with the procedure and signed informed consent. The patient was brought back to [facility] laboratory director, prepped and draped in sterile fashion. Time-out was performed. Sedation was administer ed. The right radial ultrasound-guided micropuncture technique was used to obtain a right radial acc ess. The [place] 4 catheter was advanced to the LV cavity. LVEDP was obtained. Pullback did not show any gradient. Same catheter was used for selective coronary angiogram of the left and right coronar y systems. At the end of procedure, catheter was removed. Sheath was removed. TR band was applied and access was closed with a TR band. Hemostasis was achieved. The patient was moved back to [facility] in stable condition. Findings: 1.Left main is short, almost absent. 2.LAD: Ostial to proximal diffuse 90% disease, then mid to distal mild LI. 3.Left circ: Mild LI. 4.RCA: Ostial 90% disease and then proximal 80% disease, followed by a good segment and mid 99% dis ease, and distally 99% disease. RPDA mild LI. 5.LVEDP 22 mmHg. Assessment And Plan: 1.Significant proximal to mid left anterior descending disease. 2.Significant ostial/proximal to mid and distal right coronary artery disease with a normal right po sterior descending artery. 3.The plan will be to transfer to [facility] for urgent coronary artery bypass graft. SWETA/WOLF Voice ID: [id number] Report ID: [id number]
--- NOTE | 2024-01-06 11:45 | P.DS ---
Admission Date: 01/04/24 Discharge Date: 01/06/24 Reason for Admission: Chest pain Consultations: Cardiology - Dr. Torres / Dr. Richards Nephrology - Dr. Parker Brief History of Present Illness: 63yo F, PMH: congestive heart failure, hypothyroidism, GERD s/p West's fundoplication and hypertension Patient presented to the emergency department with a complaint of chest pain of 1 day duration. Patient describes anterior chest pain, radiating to the neck area, associated shortness of breath, no diaphoresis, no known relieving or aggravating factors, no palpitation, onset at rest. Patient reports fatigue of about 1 months duration. She reports noncompliant with her thyroid medication for about 1 year. She denies any cough or orthopnea. Patient was assessed in the emergency department. Blood work showed mildly elevated troponin, EKG unremarkable shows no ischemic changes. Chest x-ray showed no acute changes. Patient is hospitalized for further management NSTEMI. Hospital Course: Problem List: Severe CAD (LAD, RCA) NSTEMI acute hypoxemic respiratory failure secondary to acute on Chronic CHF (HFrEF) CKD3 Hypothyroidism Hyperlipidemia Hypertension GERD s/p West Fundoplication Depression/Anxiety/Bipolar disorder Patient presented with chest pain, dyspnea. Troponin trended up throughout hospitalization (initially 136, peak so far 5242). Cardiology was consulted and patient was taken to OR for emergent heart cath which noted significant LAD and RCA disease on 01/05. Dr. Torres transfer to tertiary level of care facility - initiated 01/05 - for CABG. 01/04 - patients breathing worsened, became hypoxic, was requiring increased oxygen supplementation, ~10L nasal cannula from 2L. On exam, patient was noted to look volume overloaded with crackles, no lower e xtremity edema. Chest xray (01/04) with findings to suggest pulmonary edema. Patient received 1 time dose of 20 mg IV lasix and had improvement of her symptoms. Repeat CXR (01/05) with mild interval improvement of pulm edema. Last TTE (06/2023): EF: 30-35% Her oxygen requirement significantly improved by 01/05 afternoon. Nasal cannula had fallen off while sleeping, she reported no shortness of breath, and at that time pulse ox was checked and she was at 91-92% on room air. Given severe CAD, she was placed back on nasal cannula. Patient reported noncompliance with her home synthroid for ~1 year and stated she just recently restarted her thyroid medication. Thyroid studies this hospitalization: TSH 78.2, free t4 0.44. Patient was continued on synthroid 0.1 mg. Advised to recheck thyroid studies in 2-3 months to reassess. Physical Exam: GEN: Alert, oriented, NAD HEENT: Normal conjunctiva, sclera anicteric CV: Regular rate and rhythm, no edema Pulm: Nonlabored respirations on 3L NC ABD: Soft, nontender, nondistended Neuro: Normal speech, normal affect Left heart cath and selective angiogram (01/06/24) Findings: 1. Left main is short, almost absent. 2. LAD: Ostial to proximal diffuse 90% disease, then mid to distal mild LI. 3. Left circ: Mild LI. 4. RCA: Ostial 90% disease and then proximal 80% disease, followed by a good seg ment and mid 99% disease, and distally 99% disease. RPDA mild LI. 5. LVEDP 22 mmHg. Assessment And Plan: 1. Significant proximal to mid left anterior descending disease. 2. Significant ostial/proximal to mid and distal right coronary artery disease with a normal right posterior descending artery Vital Signs/Physical Exam: Temp Pulse Resp BP Pulse Ox 98.4 F 72 16 107/67 99 01/06/24 11:14 01/06/24 11:20 01/06/24 11:20 01/06/24 11:20 01/06/24 11:14 Laboratory Data at Discharge: WBC 14.90 thou/uL (4.3-10.9) H 01/06/24 05:46 Hgb 9.6 g/dL (12.0-15.0) L 01/06/24 05:46 Hct 28.9 % (36.0-45.0) L 01/06/24 05:46 Plt Count 199 thou/uL (152-406) 01/06/24 05:46 PT 11.3 SECONDS (9.5-12.5) 01/05/24 18:50 INR 1.03 01/05/24 18:50 APTT 60.8 SECONDS (24.3-36.9) H 01/06/24 05:46 Sodium 136 mEq/L (136-145) 01/06/24 05:46 Potassium 4.4 mEq/L (3.5-5.1) 01/06/24 05:46 BUN 35 mg/dL (7-18) H 01/06/24 05:46 Creatinine 2.10 mg/dL (0.55-1.02) H 01/06/24 05:46 Glucose 138 mg/dL (74-106) H 01/06/24 05:46 Phosphorus 3.3 mg/dL (2.5-4.9) 01/05/24 01:13 Magnesium 2.1 mg/dL (1.6-2.4) 01/06/24 05:46 Triglycerides 142 mg/dL (<150) 01/04/24 20:30 Cholesterol 405 mg/dL (<200) H 01/04/24 20:30 HDL Cholesterol 67 mg/dL (40-60) H 01/04/24 20:30 Cholesterol/HDL Ratio 6.04 01/04/24 20:30 Home Medications: Citalopram [Celexa*] 10 mg PO DAILY 10/13/14 Trazodone HCl 100 mg PO DAILY 07/10/23 Levothyroxine [Synthroid] 100 mcg PO [id number] 01/04/24 Physician Discharge Instructions: Physician discharge instructions: Patient presented with chest pain, dyspnea. Troponin trended up throughout hospitalization (initially 136, peak so far 5242). Cardiology was consulted and patient was taken to OR for emergent heart cath which noted significant LAD and RCA disease on 01/05. Dr. Torres recommended inpatient CABG, however since that cannot but done at this facility, recommended transfer to tertiary level of care facility - initiated 01/05. 01/04 - patients breathing worsened, became hypoxic, was requiring increased oxygen supplementation, ~10L nasal cannula from 2L. On exam, patient was noted to look volume overloaded with crackles, no lower extremity edema. Chest xray (01/04) with findings to suggest pulmonary edema. Patient received 1 time dose of 20 mg IV lasix and had improvement of her symptoms. Repeat CXR (01/05) with mild interval improvement of pulm edema. Patient reported noncompliance with her home synthroid for ~1 year and stated she just recently restarted her thyroid medication. Thyroid studies this hospitalization: TSH 78.2, free t4 0.44. Patient was started on synthroid 0.1 mg. Advised to recheck thyroid studies in 2-3 months to reassess. Followup: Juhi Abraham NP [Primary Care Provider] - Time spent managing pt's care (in minutes): 45
[2024-01-06] MEDS: LORazepam 2 MG/ML VIAL IV ONE (14:21)
[2024-01-06 15:47] VITALS: O2SAT 98
--- NOTE | 2024-01-06 16:21 | EKG ---
Test Date: 2024-01-04 Test Time: 16:45:01 Tea Room Manager: PH MEASUREMENT RESULTS: Intervals: Rate: 73 HI: 168 QRSD: 96 QT: 348 QTc: 383 [place]: P: -9 HI: 168 QRS: 13 T: 120 INTERPRETIVE STATEMENTS: Normal sinus rhythm Nonspecific T wave abnormality Abnormal ECG Compared to ECG 07/10/2023 16:39:43 No significant changes Electronically Signed On 01-06-24 16:17:15 CDT by Irvin Richards
[2024-01-06 17:23] VITALS: BP 109/77; TEMP 97.5
[2024-01-06] MEDS ORDERED: ATORVASTATIN 40 MG TAB PO SCH (21:00)
--- NOTE | 2024-01-06 22:09 | P.PN ---
Date of Service: 01/06/24 Vital Signs Temp Pulse Resp BP Pulse Ox 97.5 F 79 17 109/77 90 L 01/06/24 16:00 01/06/24 16:00 01/06/24 16:00 01/06/24 16:00 01/06/24 16:00 Assessment/ Plan: Nephrology No dyspnea No chest pain Feeling better No acute events overnight Vitals, medications, blood work and imaging reviewed in the chart General: Oriented x3, Cooperative, Mild distress HEENT: Atraumatic Neck: Supple Respiratory: Rhonchi/gurgles Cardiovascular: No edema, Regular rate/rhythm Gastrointestinal: Soft and benign, Non-distended Musculoskeletal: No clubbing, No contractures Integumentary: No rashes, No cyanosis Neurological: Normal speech Laboratory Data (last 24 hrs) 01/05/24 01/05/24 01/04/24 01:13 01:13 20:30 WBC 9.60 Hgb 9.6 L Hct 28.7 L Plt Count 192 Sodium 139 Potassium 4.5 D BUN 31 H Creatinine 1.93 H Glucose 105 Phosphorus 3.3 Magnesium 2.3 Triglycerides 142 Cholesterol 405 H HDL Cholesterol 67 H Cholesterol/HDL Ratio 6.04 Imagings Data: EXAM DESCRIPTION: RADChest Single View01/05/2024 2:44 pm CLINICAL HISTORY: hypoxia, cough COMPARISON: Chest Single View dated 01/04/2024; Chest Single View dated 2022; Chest Single View dated 10/17/2015; CHEST SINGLE VIEW dated 02/24/2015 TECHNIQUE: Portable AP view of the chest. FINDINGS: Central predominant fluffy opacities, with trace right minor fissure effusion. No pneumothorax or effusion. The cardiomediastinal contours are unremarkable. IMPRESSION: Findings suggestive of pulmonary edema. EXAM DESCRIPTION: RAD - Chest Single View - 01/04/2024 3:49 pm CLINICAL HISTORY: CHEST PAIN Chest pain. COMPARISON: Chest Single View dated 07/10/2023; Chest Single View dated 10/17/2015; CHEST SINGLE VIEW dated 02/24/2015; CHEST SINGLE VIEW dated 12/22/2014 FINDINGS: Portable technique limits examination quality. The lungs are grossly clear. The heart is mildly enlarged in size. No displaced fractures. IMPRESSION: No acute intrathoracic process suspected. Conclusions/Impression: Stage I ANGELY in the setting of chronic ibuprofen complicated by hypotension CKD IIIb -No NSAIDs HTN with CKD complicated by hypotension in the setting of ACS -Hold antihypertensives at this time Anemia in chronic illness -Monitor H&H CAD/ NSTEMI -Cardiology following -Heparin gtt Case reviewed with Dr. Velázquez
--- NOTE | 2024-01-07 09:41 | ECHO ---
HEIGHT: 5 ft 3 in WEIGHT: 119 lb 0 oz DATE OF STUDY: 01/06/[address]: Khoa Lezama MD 2-DIMENSIONAL: YES M.MODE: YES DOPPLER: YES COLOR FLOW: YES TDS: PORTABLE: YES DEFINITY: BUBBLE STUDY: DIAGNOSIS: CHEST PAIN CARDIAC HISTORY: CATHERIZATION: YES SURGERY: PROSTHETIC VALVE: PACEMAKER: MEASUREMENTS (cm) DIASTOLIC (NORMALS) SYSTOLIC (NORMALS) IVSd 0.9 (0.6-1.2) LA Diam 4.3 (1.9-4.0) LVEF 30-35% LVIDd 5.6 (3.5-5.7) LVIDs 4.6 (2.0-3.5) %FS 18% LVPWd 0.9 (0.6-1.2) Ao Diam 2.2 (2.0-3.7) 2 DIMENSIONAL ASSESSMENT: RIGHT ATRIUM: NORMAL LEFT ATRIUM: ENLARGED RIGHT VENTRICLE: NORMAL LEFT VENTRICLE: DEPRESSED EJECTION FRACTION TRICUSPID VALVE: MILD TRICUSPID REGURGITATION MITRAL VALVE: MODERATE MITRAL REGURGITATION PULMONIC VALVE: MILD PULMONIC INSUFFICIENCY AORTIC VALVE: NORMAL PERICARDIAL EFFUSION: NONE AORTIC ROOT: NORMAL LEFT VENTRICULAR WALL MOTION: MODERATE GLOBAL HYPOKINESIS DOPPLER/COLOR FLOW: SEE BELOW COMMENTS: 1. MODERATELY DEPRESSED LEFT VENTRICULAR EJECTION FRACTION 30-35% 2. MODERATE GLOBAL HYPOKINESIS 3. LEFT ATRIAL ENLARGEMENT 4. MODERATE MITRAL REGURGITATION TECHNOLOGIST: TASNEEM PEARSON
== END 2024-01-06 19:20 | disposition short-term general hospital (02) | DRG 280 ==
LOC: ER 15:16 → ERHOLD 19:26 → 2ND 01-05 12:15 → OBSVTOIN 01-05 18:09
PROVIDERS: ADMIT Internal Medicine; ATTEND Hospitalist
PROC: 4A023N7 Measurement of Cardiac Sampling and Pressure, Left Heart, Percutaneous Approach (ICD-10-PCS; principal; 2024-01-06)
PROC: B2111ZZ Fluoroscopy of Multiple Coronary Arteries using Low Osmolar Contrast (ICD-10-PCS; 2024-01-06)
DX: I21.4 Non-ST elevation (NSTEMI) myocardial infarction (principal); I50.23 Acute on chronic systolic (congestive) heart failure; J96.01 Acute respiratory failure with hypoxia; I13.0 Hypertensive heart and chronic kidney disease with heart failure and stage 1 through stage 4 chronic kidney disease, or unspecified chronic kidney disease; N17.9 Acute kidney failure, unspecified; N18.32 Chronic kidney disease, stage 3b; D63.1 Anemia in chronic kidney disease; E03.9 Hypothyroidism, unspecified; F41.9 Anxiety disorder, unspecified; F31.9 Bipolar disorder, unspecified; I08.1 Rheumatic disorders of both mitral and tricuspid valves; I95.9 Hypotension, unspecified; K21.9 Gastro-esophageal reflux disease without esophagitis; I25.10 Atherosclerotic heart disease of native coronary artery without angina pectoris; F17.210 Nicotine dependence, cigarettes, uncomplicated; Z88.0 Allergy status to penicillin; Z88.8 Allergy status to other drugs, medicaments and biological substances; Z79.82 Long term (current) use of aspirin; Z98.51 Tubal ligation status; Z98.84 Bariatric surgery status; Z90.710 Acquired absence of both cervix and uterus; Z79.899 Other long term (current) drug therapy; Z91.148 Patient's other noncompliance with medication regimen for other reason
CPT/HCPCS: 36415; 71045; 76937; 80048; 80061; 82024; 82533; 83735; 83880; 84100; 84439; 84443; 84484; 85025; 85610; 85730; 93005; 93306; 93458; 94640; 94760; 96361; 96374; 96375; 99152; 99153; 99285; C1893; G0378; J0461; J1644; J1650; J1720; J1940; J2001; J2250; J2270; J2310; J2405; J3010; J7030; J7040; J7613; J7644; Q9966

== ENCOUNTER 2024-10-21 20:56 | Inpatient (IN) | payer SELFPAY ==
[2024-10-21] MEDS ORDERED: FAMOTIDINE 20 MG/2 ML VIAL IV ONE (21:13)
[2024-10-21] MEDS ORDERED: ONDANSETRON 4 MG/2 ML VIAL ONE (21:13)
[2024-10-21 21:22] LABS: Absolute Basophils 0.1 K/uL (0-0.5); Absolute Eosinophils 0.2 K/uL (0-0.5); Absolute Lymphocytes (CBC) 1.2 K/uL (0.7-4.9); Absolute Monocytes 0.7 K/uL (0.1-1.3); Basophils % 0.6 % (0-1.3); Eosinophils % 1.5 % (0-4.4); Hematocrit 34.6 % (36.0-45.0); Hemoglobin 11.9 g/dL (12.0-15.0); Lymphocytes % 8.7 % (15.3-44.8); MCH 30.6 pg (27.0-35.0); MCHC 34.5 g/dL (32.0-36.0); MCV 88.6 fL (80-100); Neutrophils % 84.2 % (41.7-73.7); Nucleated Red Blood Cells % 0.1 % (0-0); Platelets 292 thou/uL (152-406); Red Cell Distribution Width 12.8 % (12.1-15.2)
[2024-10-21 21:35] LABS: PT Prothrombin Time 11.5 SECONDS (10-13.0); Protime INR 1.01
[2024-10-21 21:48] LABS: ALT/SGPT 18 U/L (13-56); Albumin 3.1 g/dL (3.4-5.0); Albumin/Globulin Ratio 0.9 (1.1-1.8); Alkaline Phosphatase 106 U/L (45-117); Anion Gap 11.2 mEq/L (5.0-15.0); BUN Blood Urea Nitrogen 28 mg/dL (7-18); Bicarbonate 23 mEq/L (21-32); Bilirubin Total 0.2 mg/dL (0.2-1.0); Globulin 3.3 g/dL (2.3-3.5); Glomerular Filtration Rate 46 ml/min (=/>90); Glucose Level 121 mg/dL (74-106); NT PRO-BNP 863 pg/mL (<125); Protein, Total 6.4 g/dL (6.4-8.2); Sodium Level 140 mEq/L (136-145); Troponin High Sensitivity 17.8 pg/mL (<58.9)
[2024-10-21 21:50] LABS: AST/SGOT 21 U/L (15-37); Bilirubin Direct < 0.2 mg/dL (0-0.2); Magnesium 1.8 mg/dL (1.6-2.4); Potassium 4.2 mEq/L (3.5-5.1)
--- NOTE | 2024-10-21 21:51 | RAD REPORT ---
EXAMINATION: ONE VIEW CHEST XR CLINICAL INDICATION: CHEST PAIN TECHNIQUE: Frontal chest projection is submitted. Examination is limited by patient positioning and t echnique. COMPARISON: 01/06/2024 FINDINGS: The lungs are well inflated and clear. The heart is upper limit of normal in size. No displaced fract ures identified. IMPRESSION: No acute intrathoracic abnormalities.
[2024-10-21] MEDS ORDERED: METOPROLOL TAR 25 MG TAB ONE (22:26)
[2024-10-21] MEDS ORDERED: CLOPIDOGREL 75 MG TABLET ONE (22:26)
[2024-10-21] MEDS ORDERED: ENOXAPARIN 60 MG/0.6 ML SQ ONE (22:27)
--- NOTE | 2024-10-21 22:30 | EDPHYS ---
Physician Documentation [facility] Name: Sophia Palacios Age: 64 yrs Sex: Female : 1960 Arrival Date: 10/21/2024 Time: 20:56 Bed 3 Private MD: ED Physician Anthony Hinojosa HPI: 10/21 22:22 This 64 yrs old Female presents to ER via EMS with complaints of Chest Pain, nawaf Arm Pain, Nausea. 22:22 The patient or guardian reports chest pain that is located primarily in the substernal nawaf area. Onset: just prior to arrival. The pain radiates to both shoulders. Associated signs and symptoms: Pertinent positives: nausea. The chest pain is described as a pressure. Modifying factors: The symptoms are alleviated by nothing. the symptoms are aggravated by nothing. Severity of pain: At its worst the pain was mild moderate in the emergency department the pain is unchanged. The patient has experienced similar episodes in the past, several times. Historical: - Allergies: 21:08 PENICILLINS; al5 - PMHx: 21:08 Anxiety; Bipolar disorder; Congestive heart failure; Depression; ESRD; Headaches; al5 Hypertension; Hypothyroidism; - PSHx: 21:08 Stented artery; al5 - Immunization history:: Adult Immunizations up to date. - Infectious Disease History:: Denies. - Social history:: Smoking status: Patient reports the use of cigarette tobacco products, denies chronic smoking, but will smoke occasionally. - Family history:: not pertinent. ROS: 22:22 Constitutional: Negative for fever, chills, and weight loss, Eyes: Negative for injury, nawaf pain, redness, and discharge, ENT: Negative for injury, pain, and discharge, Neck: Negative for injury, pain, and swelling, Respiratory: Negative for shortness of breath, cough, wheezing, and pleuritic chest pain, Abdomen/GI: Negative for abdominal pain, nausea, vomiting, diarrhea, and constipation, Back: Negative for injury and pain, : Negative for injury, bleeding, discharge, and swelling, MS/Extremity: Negative for injury and deformity, Skin: Negative for injury, rash, and discoloration, Neuro: Negative for headache, weakness, numbness, tingling, and seizure, Psych: Negative for depression, anxiety, suicide ideation, homicidal ideation, and hallucinations, Allergy/Immunology: Negative for hives, rash, and allergies, Endocrine: Negative for neck swelling, polydipsia, polyuria, polyphagia, and marked weight changes, Hematologic/Lymphatic: Negative for swollen nodes, abnormal bleeding, and unusual bruising, 22:22 Cardiovascular: Positive for chest pain, of the chest, Exam: 22:22 Constitutional: This is a well developed, well nourished patient who is awake, alert, nawaf and in no acute distress. Head/Face: Normocephalic, atraumatic. Eyes: Pupils equal round and reactive to light, extra-ocular motions intact. Lids and lashes normal. Conjunctiva and sclera are non-icteric and not injected. Cornea within normal limits. Periorbital areas with no swelling, redness, or edema. ENT: Nares patent. No nasal discharge, no septal abnormalities noted. Tympanic membranes are normal and external auditory canals are clear. Oropharynx with no redness, swelling, or masses, exudates, or evidence of obstruction, uvula midline. Mucous membranes moist. Neck: Trachea midline, no thyromegaly or masses palpated, and no cervical lymphadenopathy. Supple, full range of motion without nuchal rigidity, or vertebral point tenderness. No Meningismus. Chest/axilla: Normal chest wall appearance and motion. Nontender with no deformity. No lesions are appreciated. Cardiovascular: Regular rate and rhythm with a normal S1 and S2. No gallops, murmurs, or rubs. Normal PMI, no JVD. No pulse deficits. Respiratory: Lungs have equal breath sounds bilaterally, clear to auscultation and percussion. No rales, rhonchi or wheezes noted. No increased work of breathing, no retractions or nasal flaring. Back: No spinal tenderness. No costovertebral tenderness. Full range of motion. Skin: Warm, dry with normal turgor. Normal color with no rashes, no lesions, and no evidence of cellulitis. MS/ Extremity: Pulses equal, no cyanosis. Neurovascular intact. Full, normal range of motion., bilateral aka Neuro: Awake and alert, GCS 15, oriented to person, place, time, and situation. Cranial nerves II-XII grossly intact. Motor strength 5/5 in all extremities. Sensory grossly intact. Cerebellar exam normal. Normal gait. Psych: Awake, alert, with orientation to person, place and time. Behavior, mood, and affect are within normal limits. 22:22 Abdomen/GI: Soft, non-tender, with normal bowel sounds. No distension or tympany. No guarding or rebound. No evidence of tenderness throughout. 22:22 ECG was reviewed by the Attending Physician. Vital Signs: 21:05 BP 138 / 81; Pulse 86; Resp 16; Temp 97(A); Pulse Ox 100% on R/A; Weight 58.97 kg; al5 Height 5 ft. 3 in. ; Pain 7/10; 22:00 BP 126 / 85; Pulse 82; Resp 18; Pulse Ox 99% ; al5 22:15 BP 106 / 58; Pulse 85; Resp 22; Pulse Ox 100% ; al5 22:30 BP 136 / 82; Pulse 85; Resp 20; Pulse Ox 100% ; al5 22:33 BP 136 / 85 LA; Pulse 86; Resp 19; Pulse Ox 100% ; al5 22:36 BP 115 / 82; Pulse 83; Resp 19; Pulse Ox 100% ; al5 23:00 BP 115 / 91; Pulse 79; Resp 19; Pulse Ox 98% ; al5 23:30 BP 101 / 81; Pulse 72; Resp 18; Pulse Ox 98% ; al5 21:05 Body Mass Index 23.03 (58.97 kg, 160.02 cm) al5 21:05 Pain Scale: Adult al5 MDM: 20:58 Medical Screening Exam initiated nawaf 22:26 Differential diagnosis: abnormal EKG, acute myocardial infarction, acute pericarditis, nawaf anxiety, chest wall pain, Cholelithiasis costochondritis, esophagitis, gastritis, herpes zoster, hiatal hernia, mitral valve prolapse, pancreatitis, peptic ulcer disease, pericarditis, pleurisy, pneumonia, pulmonary embolus, stable angina, thoracic aortic disection, unstable angina. HEART Score: History: Moderately Suspicious (1), ECG: Non specific repolarization disturbance / LBTB / PM (1), Age: > 45 and < 65 years (1), Risk Factors: > or = 3 Risk factors for atherosclerotic disease (2), [Hypercholesterolemia] [Hypertension] [+ Family HX] Troponin: < or = 1 x Normal Limit (0). The patient was given aspirin in the Emergency Department. LORI Risk Score: 1 - Three or more CAD risk factors, 1- Known CAD, 1 - ASA use in past 7 days, 1 - Recent [<24hrs] Severe Angina, TOTAL SCORE = 4. Data reviewed: vital signs, nurses notes, EMS record, lab test result(s), EKG, radiologic studies, plain films. Consideration of Admission/Observation Patient was admitted/placed on observation. Escalation of care including admission/observation considered. I considered the following discharge prescriptions or medication management in the emergency department Medications were administered in the Emergency Department. See MAR. Independent interpretation of the following test(s) in the Emergency Department EKG: See my EKG interpretation above. Test considered but Not performed: Ultrasound no 2 d echo. Historians other than the Patient: EMS: ems well informed. Care significantly affected by the following chronic conditions: Hypertension, Congestive Heart Failure, Chronic Kidney Disease. Counseling: I had a detailed discussion with the patient and/or guardian regarding the historical points, exam findings, and any diagnostic results supporting the discharge/admit diagnosis, lab results, radiology results, the need for further work-up and treatment in the hospital. 10/21 21:03 Order name: Basic Metabolic Panel; Complete Time: 22:17 nawaf 10/21 21:03 Order name: CBC with Diff; Complete Time: 22:17 nawaf 10/21 21:03 Order name: LFT's; Complete Time: 22:17 nawaf 10/21 21:03 Order name: Magnesium; Complete Time: 22:17 nawaf 10/21 21:03 Order name: NT PRO-BNP; Complete Time: 22:17 nawaf 10/21 21:03 Order name: PT-INR; Complete Time: 22:29 nawaf 10/21 21:03 Order name: Troponin HS; Complete Time: 22:17 nawaf 10/21 21:03 Order name: Urinalysis w/ reflexes nawaf 10/21 22:41 Order name: Lipase nawaf 10/21 22:55 Order name: Urinalysis w/ reflexes EDMS 10/21 22:56 Order name: CBC with Automated Diff EDMS 10/21 22:56 Order name: CBC with Automated Diff EDMS 10/21 22:56 Order name: Comprehensive Metabolic Panel EDMS 10/21 22:56 Order name: Comprehensive Metabolic Panel EDMS 10/21 21:03 Order name: XRAY Chest (1 view); Complete Time: 22:17 nawaf 10/21 22:41 Order name: CT Aorta for Dissection nawaf 10/21 23:56 Order name: CT EDMS 10/21 21:03 Order name: EKG; Complete Time: 21:04 [facility] 10/21 22:55 Order name: CONS Physician Consult [facility] 10/21 21:03 Order name: Cardiac monitoring; Complete Time: 21:11 [facility] 10/21 21:03 Order name: EKG - Nurse/Tech; Complete Time: 21:11 [facility] 10/21 21:03 Order name: IV Saline Lock; Complete Time: 21: [facility] 10/21 21:03 Order name: Labs collected and sent; Complete Time: 21: [facility] 10/21 21:03 Order name: O2 Per Protocol; Complete Time: 21: [facility] 10/21 21:03 Order name: O2 Sat Monitoring; Complete Time: 21: [facility] EC: Rate is 85 beats/min. Rhythm is regular. QRS [employer] is Normal. [place] interval is normal. QRS nawaf interval is normal. QT interval is normal. No Q waves. T waves are Normal. No ST changes noted. Clinical impression: NSR w/ Non-specific ST/T Changes and No evidence of ischemia. Interpreted by me. Reviewed by me. Administered Medications: 21:28 Drug: Famotidine IVP 20 mg IVP once; dilute with 10 mL 0.9% NaCl; give over 2 minutes al5 Route: IVP; Site: left forearm; 22:11 Follow up: Response: No adverse reaction; Pain is unchanged, physician notified al5 21:28 Drug: Ondansetron IVP 4 mg IVP once; over 2 minutes Route: IVP; Site: left forearm; al5 22:11 Follow up: Response: No adverse reaction; Nausea is decreased al5 22:27 Not Given (Physician Discretion): [id number] mg PO once al5 22:37 Drug: Clopidogrel PO 75 mg PO once Route: PO; al5 23:57 Follow up: Response: No adverse reaction al5 22:37 Drug: Enoxaparin Sub-Q 60 mg Sub-Q once Route: Sub-Q; Site: right lower abdomen; al5 23:57 Follow up: Response: No adverse reaction al5 22:37 Drug: Metoprolol PO 25 mg PO once Route: PO; al5 23:56 Follow up: Response: No adverse reaction al5 22:51 Drug: Mucomyst - Acetylcysteine PO 600 mg PO once Route: PO; al5 23:56 Follow up: Response: No adverse reaction al5 Disposition Summary: 10/21/24 22:29 Hospitalization Ordered Notes: Hospitalization Status: Observation nawaf Provider: Syed Nieves cha Location: Telemetry/MedSurg (observation) nawaf Condition: Stable nawaf Problem: new nawaf Symptoms: have improved nawaf Bed/Room Type: Standard [facility] Room Assignment: 217(10/21/24 23:05) sp Diagnosis - Chest pain, unspecified nawaf - Nausea nawaf - Unspecified kidney failure nawaf - Elevated white blood cell count nawaf Forms: - Medication Reconciliation Form nawaf - SBAR form nawaf - Leadership Thank You Letter nawaf Signatures: Dispatcher [employer] EDMS Anthony Hinojosa MD MD cha Pinkerton, Shawna sp Langhorst, Amanda, RN RN al5 Corrections: (The following items were deleted from the chart) 21:08 21:08 Allergies: Zofran; al5 al5 21:08 21:08 PSHx: None; al5 al5 22:24 22:19 D-Dimer ordered. EDMS EDMS 23:05 22:29 nawaf sp
--- NOTE | 2024-10-21 22:30 | ER ---
Nurse's Notes [facility] Name: Sophia Palacios Age: 64 yrs Sex: Female : 1960 Arrival Date: 10/21/2024 Time: 20:56 Bed 3 Private MD: Diagnosis: Chest pain, unspecified;Nausea;Unspecified kidney failure;Elevated white blood cell count Presentation: 10/21 21:05 Chief complaint: EMS states: c/o CP and nausea starting at 1930 today. also c/o al5 shoulder pain for past few days. Coronavirus screen: At this time, the client does not indicate any symptoms associated with coronavirus-19. Ebola Screen: No symptoms or risks identified at this time. Initial Sepsis Screen: Does the patient meet any 2 criteria? No. Patient's initial sepsis screen is negative. Does the patient have a suspected source of infection? No. Patient's initial sepsis screen is negative. Risk Assessment: Do you want to hurt yourself or someone else? Patient reports no desire to harm self or others. Onset of symptoms was October 21, 2024. Care prior to arrival: Medication(s) given: ASA, 81 mg, x 3, Nitroglycerin, 0.4 mg SL x 1, zofran 4 mg, 700 mL Lactated Ringers IV initiated. 22 GA, in the left forearm. 21:05 Method Of Arrival: EMS: [facility] al5 21:05 Acuity: MARU 2 al5 Triage Assessment: 21:08 General: Appears in no apparent distress. uncomfortable, Behavior is calm, cooperative. al5 Pain: Complains of pain in left scapular area and right scapular area Pain currently is 7 out of 10 on a pain scale. EENT: No signs and/or symptoms were reported regarding the EENT system. Neuro: Level of Consciousness is awake, alert, obeys commands, Oriented to person, place, time, situation. Cardiovascular: Reports chest pain, nausea, vomiting, Capillary refill < 3 seconds Patient's skin is warm and dry. Rhythm is sinus rhythm. Respiratory: Airway is patent Respiratory effort is even, unlabored, Respiratory pattern is regular, symmetrical. GI: Abdomen is flat, non-distended, Reports nausea, vomiting. : No signs and/or symptoms were reported regarding the genitourinary system. Derm: Skin is intact, Skin is pink, warm \T\ dry. normal. Musculoskeletal: No signs and/or symptoms reported regarding the musculoskeletal system. Historical: - Allergies: 21:08 PENICILLINS; al5 - PMHx: 21:08 Anxiety; Bipolar disorder; Congestive heart failure; Depression; ESRD; Headaches; al5 Hypertension; Hypothyroidism; - PSHx: 21:08 Stented artery; al5 - Immunization history:: Adult Immunizations up to date. - Infectious Disease History:: Denies. - Social history:: Smoking status: Patient reports the use of cigarette tobacco products, denies chronic smoking, but will smoke occasionally. - Family history:: not pertinent. Screenin:10 [facility] ED Fall Risk Assessment (Adult) History of falling in the last 3 months, al5 including since admission No falls in past 3 months (0 pts) Confusion or Disorientation No (0 pts) Intoxicated or Sedated No (0 pts) Impaired Gait No (0 pts) Mobility Assist Device Used No (0 pt) Altered Elimination No (0 pt) Score/Fall Risk Level 0 - 2 = Low Risk Oriented to surroundings, Maintained a safe environment, Hourly rounding (assess needs \T\ fall precautionary measures) done. Abuse screen: Denies threats or abuse. Denies injuries from another. Nutritional screening: No deficits noted. Tuberculosis screening: No symptoms or risk factors identified. Assessment: 21:10 Reassessment: see triage assessment. Pain: Pain does not radiate. Pain began 2 hours al5 ago. 22:12 Reassessment: Patient appears in no apparent distress at this time. Patient and/or al5 family updated on plan of care and expected duration. Pain level reassessed. Patient is alert, oriented x 3, equal unlabored respirations, skin warm/dry/pink. nausea decreased, chest pain still present. provider notified. 23:55 Reassessment: Patient appears in no apparent distress at this time. No changes from al5 previously documented assessment. Patient and/or family updated on plan of care and expected duration. Pain level reassessed. Patient is alert, oriented x 3, equal unlabored respirations, skin warm/dry/pink. Vital Signs: 21:05 BP 138 / 81; Pulse 86; Resp 16; Temp 97(A); Pulse Ox 100% on R/A; Weight 58.97 kg; al5 Height 5 ft. 3 in. ; Pain 7/10; 22:00 BP 126 / 85; Pulse 82; Resp 18; Pulse Ox 99% ; al5 22:15 BP 106 / 58; Pulse 85; Resp 22; Pulse Ox 100% ; al5 22:30 BP 136 / 82; Pulse 85; Resp 20; Pulse Ox 100% ; al5 22:33 BP 136 / 85 LA; Pulse 86; Resp 19; Pulse Ox 100% ; al5 22:36 BP 115 / 82; Pulse 83; Resp 19; Pulse Ox 100% ; al5 23:00 BP 115 / 91; Pulse 79; Resp 19; Pulse Ox 98% ; al5 23:30 BP 101 / 81; Pulse 72; Resp 18; Pulse Ox 98% ; al5 21:05 Body Mass Index 23.03 (58.97 kg, 160.02 cm) al5 21:05 Pain Scale: Adult al5 ED Course: 20:58 Patient arrived in ED. jj6 20:58 Anthony Hinojosa MD is Attending Physician. nawaf 20:59 Milo Pederson RN is Primary Nurse. jj7 21:07 Triage completed. al5 21:10 Arm band placed on right wrist. Patient placed in the treatment room, in view of staff al5 members, on medical parasitologist, on pulse oximetry. 21:10 No provider procedures requiring assistance completed. Maintain EMS IV. Dressing al5 intact. Good blood return noted. Site clean \T\ dry. Gauge \T\ site: 22g L FA. Flushed with 10 mL NS. Patient maintains SpO2 saturation greater than 95% on room air. 21:11 Patient has correct armband on for positive identification. Bed in low position. Call al5 light in reach. Side rails up X2. Provided Education on: plan of care. Client placed on continuous cardiac and pulse oximetry monitoring. NIBP monitoring applied. wharf tender head on. 21:48 XRAY Chest (1 view) In Process Unspecified. EDMS 22:29 Syed Nieves MD is Hospitalizing Provider. nawaf 23:56 Patient admitted, IV remains in place. al5 Administered Medications: 21:28 Drug: Famotidine IVP 20 mg IVP once; dilute with 10 mL 0.9% NaCl; give over 2 minutes al5 Route: IVP; Site: left forearm; 22:11 Follow up: Response: No adverse reaction; Pain is unchanged, physician notified al5 21:28 Drug: Ondansetron IVP 4 mg IVP once; over 2 minutes Route: IVP; Site: left forearm; al5 22:11 Follow up: Response: No adverse reaction; Nausea is decreased al5 22:27 Not Given (Physician Discretion): [id number] mg PO once al5 22:37 Drug: Clopidogrel PO 75 mg PO once Route: PO; al5 23:57 Follow up: Response: No adverse reaction al5 22:37 Drug: Enoxaparin Sub-Q 60 mg Sub-Q once Route: Sub-Q; Site: right lower abdomen; al5 23:57 Follow up: Response: No adverse reaction al5 22:37 Drug: Metoprolol PO 25 mg PO once Route: PO; al5 23:56 Follow up: Response: No adverse reaction al5 22:51 Drug: Mucomyst - Acetylcysteine PO 600 mg PO once Route: PO; al5 23:56 Follow up: Response: No adverse reaction al5 Medication: 21:10 VIS not applicable for this client. al5 Outcome: 22:29 Decision to Hospitalize by Provider. nawaf 10/22 00:29 Admitted to Med/surg accompanied by tech, via wheelchair, room 217, with chart, al5 Condition: stable Instructed on the need for admit, 00:49 Patient left the ED. al5 Signatures: Dispatcher [facility] Anthony Hinojosa MD MD cha Jeffries, Jennifer jj6 Milo Pederson RN RN jj7 Hina Loza RN RN al5 Corrections: (The following items were deleted from the chart) 10/21 21:08 21:05 Care prior to arrival: Medication(s) given: ASA, 81 mg, x 3, Nitroglycerin, 0.4 al5 mg SL x 1, 700 mL Lactated Ringers al5 21:08 21:08 Allergies: Zofran; al5 al5 21:08 21:08 PSHx: None; al5 al5 21:15 21:05 Care prior to arrival: Medication(s) given: ASA, 81 mg, x 3, Nitroglycerin, 0.4 al5 mg SL x 1, 700 mL Lactated Ringers IV initiated. 22 GA, in the left forearm, al5 22:39 22:00 BP 106 / 58; Pulse 85bpm; Resp 22bpm; Pulse Ox 100%; jj7 al5
[2024-10-21] MEDS ORDERED: ACETYLCYST 6,000 MG/30 ML VIAL ONE (22:47)
[2024-10-21] MEDS ORDERED: ACETAMINOPHEN 325 MG TABLET PO PRN (22:51)
--- NOTE | 2024-10-21 22:51 | P.HP ---
Certification for Inpatient Patient admitted to: Inpatient With expected LOS: >2 Midnights Practitioner: I am a practitioner with admitting privileges, knowledge of patient current condition, hospital course, and medical plan of care. Services: Services provided to patient in accordance with Admission requirements found in Title 42 Section 412.3 of the Code of Federal Regulations Patient History Date of Service: 10/22/24 Reason for admission: Chest Pain History of Present Illness: 64 yrs old Female with past medical history of anxiety, bipolar disorder, congestive heart failure, hypothyroidism, depression, ESRD, hypertension, CAD status post stents, GERD, status post Fatuma's fundoplication came to ER with chest pain. Chest pain is located retrosternally and radiates to the left side of the chest and to the left arm. Denies any fever or chills. No nausea vomiting or diarrhea. Denies any shortness of breath. No sick contacts. Pain is dull aching in type 8 out of 10 in severity, intermittent, no relationship with exercise or movements. Patient was assessed in the ER and is admitted for further management of chest pain to rule out ACS Allergies ondansetron HCl [From Zofran (as hydrochloride)] Allergy (Verified 07/11/23 09:44) Unknown Penicillins Allergy (Verified 07/11/23 09:44) Unknown Home medications list reviewed: Yes Home Medications: Citalopram [Celexa*] 10 mg PO DAILY 10/13/14 Trazodone HCl 100 mg PO DAILY 07/10/23 Levothyroxine [Synthroid] 100 mcg PO [id number] 01/04/24 Aspirin [Aspirin EC 81 MG] 81 mg PO DAILY 10/22/24 Melatonin 5 mg PO BEDTIME PRN 10/22/24 - Past Medical/Surgical History Diabetic: No Past Medical History: Reviewed- Non-Contributory -: Bipolar/ Depression/ Anxiety -: bipolar -: HTN -: Hypothyroidism -: CKD -: anxiety -: Migraines Past Surgical History: Reviewed- Non-Contributory -: hysterectomy -: tubal ligation -: gastric bypass -: bilateral tubal -: fatuma funduplication - Family History Family History: Reviewed- Non-Contributory - Social History Smoking Status: Never smoker Alcohol use: No CD- Drugs: No Caffeine use: No Review of Systems 10-point ROS is otherwise unremarkable Physical Examination - Vital Signs Temperature: 97.8 F Blood Pressure: 105/63 Pulse: 62 Respirations: 18 Pulse Ox (%): 94 - Physical Exam General: Alert, Oriented x3, Mild distress HEENT: Atraumatic, Normocephalic Neck: Supple, 2+ carotid pulse no bruit Respiratory: Clear to auscultation bilaterally, Normal air movement Capillary refill: <2 Seconds Gastrointestinal: Soft and benign, Non-distended Musculoskeletal: No clubbing Integumentary: No rashes, No breakdown Neurological: Normal speech, Normal strength at 5/5 x4 extr Lymphatics: No axilla or inguinal lymphadenopathy - Studies Laboratory Data (last 24 hrs) 10/21/24 10/21/24 10/21/24 21:10 21:10 21:10 WBC 14.30 H Hgb 11.9 L Hct 34.6 L Plt Count 292 PT 11.5 INR 1.01 Sodium 140 Potassium 4.2 BUN 28 H Creatinine 1.29 H Glucose 121 H Magnesium 1.8 Total Bilirubin 0.2 AST 21 ALT 18 Alkaline Phosphatase 106 Assessment and Plan - Plan Chest pain to rule out ACS Will trend cardiac enzymes Will monitor telemetry Started on aspirin and statin EKG did not show any acute changes suggestive of ischemia Will get an echocardiogram Cardiology consult Hypertension Antihypertensives titrated Continue home medications and titrate as needed Hyperlipidemia Continue statin CKD stage II Monitor renal parameters Electrolytes monitor and replace accordingly Depression Anxiety Continue home medications and titrate as needed CAD status post PCI Continue home medications GI/DVT prophylaxis Advanced directive full code Discharge Plan: Home Plan to discharge in: 24 Hours - Advance Directives Does patient have a Living Will: No Does patient have a Durable POA for Healthcare: No - Code Status/Comfort Care Code Status: Full Code Time Spent Managing Pts Care (In Minutes): 48
[2024-10-21] MEDS: ASPIRIN EC 81 MG TAB PO SCH (22:54)
--- NOTE | 2024-10-21 23:54 | RAD REPORT ---
EXAM: CT Angiography Chest, Abdomen and Pelvis With Intravenous Contrast CLINICAL HISTORY: The patient is 64 years old and is Female; DISSECTION TECHNIQUE: Axial computed tomographic angiography images of the chest, abdomen and pelvis with intravenous con trast. Sagittal and coronal reformatted images were created and reviewed. This CT exam was performed using one or more of the following dose reduction techniques: automated exposure control, adjustment of the mA and/or kV according to patient size, and/or use of iterative reconstruction technique. MIP reconstructed images were created and reviewed. COMPARISON: No relevant prior studies available. FINDINGS: VASCULATURE: AORTA: No acute findings. No aortic aneurysm. No dissection. PULMONARY ARTERIES: There are no obvious filling defects identified within the pulmonary arteries to suggest pulmonary embolism. GREAT VESSELS OF AORTIC ARCH: No acute findings. No dissection. No arterial occlusion or sign ificant stenosis. CELIAC TRUNK AND MESENTERIC ARTERIES: No acute findings. No occlusion or significant stenosis. RENAL ARTERIES: No acute findings. No occlusion or significant stenosis. ILIAC ARTERIES: No acute findings. No occlusion or significant stenosis. CHEST: LUNGS: Unremarkable. No mass. No consolidation. PLEURAL SPACE: Unremarkable. No significant effusion. No pneumothorax. HEART: Unremarkable. No cardiomegaly. No significant pericardial effusion. ABDOMEN: LIVER: The liver is enlarged and homogeneous. GALLBLADDER AND BILE DUCTS: Unremarkable. No calcified stones. No ductal dilation. PANCREAS: A 1 cm cyst within the body of the pancreas is present. There is no pancreatic ductal d ilatation. SPLEEN: The spleen is heterogeneous secondary to the phase of contrast. ADRENALS: Unremarkable. No mass. KIDNEYS AND URETERS: The left kidney is severely atrophic. The right kidney is hypertrophied. The re is no hydronephrosis or hydroureter of either kidney. Bilateral nonspecific perinephric stranding on the left is present. No obstructing renal or ureteral calculus is seen. No solid mass. STOMACH AND BOWEL: The stomach is minimally filled with fluid and air. The majority of the small bowel is fluid-filled and relatively normal in caliber. A moderate amount of stool is present throughout the colon. There is no mucosal thickening or evidence of obstruction. PELVIS: APPENDIX: The appendix is normal in caliber without surrounding inflammation. BLADDER: The bladder is well distended. REPRODUCTIVE: The patient is status post hysterectomy. CHEST, ABDOMEN and PELVIS: INTRAPERITONEAL SPACE: Unremarkable. No significant fluid collection. No free air. BONES/JOINTS: No acute fracture. No dislocation. SOFT TISSUES: Unremarkable. LYMPH NODES: Unremarkable. No enlarged lymph nodes. IMPRESSION: 1. No evidence of aortic aneurysm or dissection. 2. No evidence of pulmonary embolism. 3. No acute findings on this CTA of the chest, abdomen, and pelvis to explain the patient's symptom s. 4. Pancreatic cyst. Recommend a contrast-enhanced, pancreas-protocol abdominal CT or MR in 1 cammie ledbetter Electronically signed by: Patito Perla MD 10/21/2024 11:49 PM CDT RP Due to temporary technical issues with the PACS/DuckDuckGo reporting system, reports are being kyra d by the in-house radiologist without review as a courtesy to ensure prompt reporting the interpreting radiologist is fully responsible for the content of the report. Transcribed Date/Time: 10/21/2024 11:53 PM
[2024-10-22 00:59] VITALS: BMI 23.6
[2024-10-22] MEDS ORDERED: MELATONIN 5 MG TABLET PO PRN (01:41)
[2024-10-22 02:16] LABS: Specific Gravity > 1.030 (1.005-1.030); Urine Bilirubin NEGATIVE (Negative); Urine Blood Negative (Negative); Urine Clarity Clear (Clear); Urine Color Colorless (Yellow); Urine Glucose NEGATIVE (Negative); Urine Ketones NEGATIVE (Negative); Urine Microscopic Reflex YN NO UMIC; Urine Nitrite NEGATIVE (Negative); Urine Protein NEGATIVE (Negative); Urine Urobilinogen Normal (Normal); Urine pH 6.5 (5.0-7.0)
[2024-10-22] MEDS: MORPHINE 2 MG/ML SYR IV PRN (02:17)
[2024-10-22] MEDS: HYDROCODONE/APAP 5/325 MG TAB PO PRN (03:54)
[2024-10-22 05:09] LABS: Absolute Basophils 0.1 K/uL (0-0.5); Absolute Eosinophils 0.4 K/uL (0-0.5); Absolute Lymphocytes (CBC) 2.3 K/uL (0.7-4.9); Absolute Monocytes 0.5 K/uL (0.1-1.3); Absolute Neutrophil 6.4 K/uL (1.8-8.0); Basophils % 0.5 % (0-1.3); Eosinophils % 3.9 % (0-4.4); Hemoglobin 11.6 g/dL (12.0-15.0); Lymphocytes % 23.7 % (15.3-44.8); MCH 30.9 pg (27.0-35.0); MCV 88.1 fL (80-100); Monocytes % 5.1 % (3.3-12.3); Neutrophils % 66.8 % (41.7-73.7); Platelets 289 thou/uL (152-406); RBC Red Blood Cell Count 3.74 M/uL (3.86-4.86); Red Cell Distribution Width 12.5 % (12.1-15.2)
[2024-10-22 05:33] LABS: ALT/SGPT 15 U/L (13-56); Albumin 2.8 g/dL (3.4-5.0); Albumin/Globulin Ratio 0.8 (1.1-1.8); Alkaline Phosphatase 103 U/L (45-117); Anion Gap 7.9 mEq/L (5.0-15.0); BUN Blood Urea Nitrogen 25 mg/dL (7-18); Bicarbonate 25 mEq/L (21-32); Bilirubin Total 0.3 mg/dL (0.2-1.0); Globulin 3.3 g/dL (2.3-3.5); Glomerular Filtration Rate 52 ml/min (=/>90); Glucose Level 83 mg/dL (74-106); Lipase 82 U/L (13-75); Phosphorus 3.7 mg/dL (2.5-4.9); Potassium 3.9 mEq/L (3.5-5.1); Protein, Total 6.1 g/dL (6.4-8.2); Sodium Level 141 mEq/L (136-145)
[2024-10-22] MEDS: LEVOTHYROXINE SOD 0.1 MG TAB PO SCH (05:37)
[2024-10-22 05:41] LABS: AST/SGOT < 10 U/L (15-37)
[2024-10-22] MEDS: CITALOPRAM 10 MG TABLET PO SCH (08:30)
[2024-10-22] MEDS: ENOXAPARIN 40 MG/0.4 ML SQ SCH (08:31)
[2024-10-22] MEDS: FLU (Fluarix Triv) TS24-25(6MOS UP)/PF 45 MCG/0.5 ML Syringe IM ONE (08:31)
--- NOTE | 2024-10-22 13:40 | P.PN ---
Subjective Date of Service: 10/22/24 Chief Complaint: Chest Pain Patient denies any chest pain. She reported recent intermittent heartburn. History of West's fundoplication, and gastric lap band surgery. Patient also has a history of Marie thyroiditis. Physical Examination - Vital Signs Temperature: 97.7 F Blood Pressure: 103/58 Pulse: 64 Respirations: 16 Pulse Ox (%): 98 - Studies Laboratory Data (last 24 hrs) 10/21/24 10/21/24 10/21/24 22:41 21:10 21:10 WBC 14.30 H Hgb 11.9 L Hct 34.6 L Plt Count 292 PT 11.5 INR 1.01 Sodium Potassium BUN Creatinine Glucose Magnesium Total Bilirubin AST ALT Alkaline Phosphatase Lipase Cancelled 10/21/24 21:10 WBC Hgb Hct Plt Count PT INR Sodium 140 Potassium 4.2 BUN 28 H Creatinine 1.29 H Glucose 121 H Magnesium 1.8 Total Bilirubin 0.2 AST 21 ALT 18 Alkaline Phosphatase 106 Lipase Assessment And Plan - Plan Physical examination General: Alert and oriented x3, NAD, HEENT: Conjunctiva not pale, anicteric sclera Neck: Supple, no elevated JVD Heart: Heart sounds 1 and 2 normal, regular rhythm, normal rate, no pedal edema Lungs: Clear to auscultation bilaterally, adequate breath sounds bilaterally, no rhonchi or crackles. Abdomen: Soft, nondistended, nontender, normal bowel sounds. Extremities: No tenderness, no deformity Skin: Normal skin turgor, no rash, no nodules or ulcers. Neuro: No focal motor deficit. Normal speech. Psychiatry: Normal mood, no agitation. Diagnosis Chest pain History of coronary artery disease Hyperlipidemia GERD Chronic kidney disease stage Plan: Chest pain History of coronary artery disease Troponin trended negative, ACS ruled out Patient has significant CAD history, recent stent Continue aspirin and statin Echocardiogram is pending Cardiology consulted and awaiting input. Check lipid profile. GERD Patient with a history of severe GERD status post West fundoplication Patient symptoms could be related to GERD. Patient has not followed up with GI for several years. Trial of sucralfate and Protonix GI follow-up as outpatient recommended. CKD stage II Monitor renal parameters Marie thyroiditis Chronic anemia History of iron deficiency Check iron panel Check TSH Depression Anxiety Continue home medications. DVT prophylaxis: Lovenox Advanced directive: full code Discharge Plan: Home
--- NOTE | 2024-10-22 18:26 | P.CNS ---
Date of Consult: 10/22/24 Chief Complaint: Chest Pain History of Present Illness: Patient with PMH of CAD s/p PCI back in 2023, presented with bilateral shoulder pain and chest pain that lasted for few minutes, in the epigastric area, patient also report nausea, vomiting, denies palpitations, no sob, no vallecillo, NO SYNCOPE. Allergies ondansetron HCl [From Zofran (as hydrochloride)] Allergy (Verified 07/11/23 09:44) Unknown Penicillins Allergy (Verified 07/11/23 09:44) Unknown Home medications list reviewed: Yes Home Medications: Citalopram [Celexa*] 10 mg PO DAILY 10/13/14 Trazodone HCl 100 mg PO DAILY 07/10/23 Levothyroxine [Synthroid] 100 mcg PO [id number] 01/04/24 Aspirin [Aspirin EC 81 MG] 81 mg PO DAILY 10/22/24 Melatonin 5 mg PO BEDTIME PRN 10/22/24 - Past Medical/Surgical History Diabetic: No -: Bipolar/ Depression/ Anxiety -: bipolar -: HTN -: Hypothyroidism -: CKD -: anxiety -: Migraines -: hysterectomy -: tubal ligation -: gastric bypass -: bilateral tubal -: fatuma funduplication - Social History Smoking Status: Current some day smoker Alcohol use: No CD- Drugs: No Caffeine use: No Place of Residence: Home Review of Systems 10-point ROS is otherwise unremarkable Physical Examination Temp Pulse Resp BP Pulse Ox 97.8 F 68 16 94/50 L 98 10/22/24 16:00 10/22/24 16:00 10/22/24 16:00 10/22/24 16:00 10/22/24 16:00 General: Alert, In no apparent distress HEENT: Atraumatic, PERRLA, Mucous membr. moist/pink, EOMI, Sclerae nonicteric Neck: Supple, 2+ carotid pulse no bruit, No LAD, Without JVD or thyroid abnormality Respiratory: Clear to auscultation bilaterally, Normal air movement Cardiovascular: Regular rate/rhythm, Normal S1 S2 Gastrointestinal: Normal bowel sounds, No tenderness Musculoskeletal: No tenderness Integumentary: No rashes Neurological: Normal gait, Normal speech, Normal tone, Normal affect Lymphatics: No axilla or inguinal lymphadenopathy Laboratory Data (last 24 hrs) 10/21/24 10/21/2425 22:41 21:10 21:10 WBC 14.30 H Hgb 11.9 L Hct 34.6 L Plt Count 292 PT 11.5 INR 1.01 Sodium Potassium BUN Creatinine Glucose Magnesium Total Bilirubin AST ALT Alkaline Phosphatase Lipase Cancelled 10/21/24 21:10 WBC Hgb Hct Plt Count PT INR Sodium 140 Potassium 4.2 BUN 28 H Creatinine 1.29 H Glucose 121 H Magnesium 1.8 Total Bilirubin 0.2 AST 21 ALT 18 Alkaline Phosphatase 106 Lipase - Problems (1) Chest pain Current Visit: No Status: Acute Plan: Patient had coronary angiogram last year that shown significant LAD and RCA disease, was transferred at that time to [place] for CABG but she was not a candidate so PCI was done, she is not sure if she was taking DAPT, but she remember that she was on ASA, she did not follow up with cardiology due to financial issues. Continue ASA 81 mg daily re start patient on Plavix 75 mg daily NPO after midnight for nuclear stress test in am (2) Chronic systolic heart failure Current Visit: No Status: Acute Plan: echo last year shows EF 30-35% with moderate MR patient looks euvolemic on exam can not tolerate GDMT due to low BP.
[2024-10-22] MEDS: TRAZODONE 50 MG TABLET PO SCH (20:23)
[2024-10-22] MEDS: ATORVASTATIN 40 MG TAB PO SCH (20:23)
[2024-10-23 05:39] LABS: Absolute Basophils 0.1 K/uL (0-0.5); Absolute Eosinophils 0.5 K/uL (0-0.5); Absolute Lymphocytes (CBC) 1.7 K/uL (0.7-4.9); Absolute Monocytes 0.6 K/uL (0.1-1.3); Absolute Neutrophil 4.9 K/uL (1.8-8.0); Basophils % 0.8 % (0-1.3); Eosinophils % 6.7 % (0-4.4); Hematocrit 34.7 % (36.0-45.0); Hemoglobin 11.9 g/dL (12.0-15.0); Lymphocytes % 22.3 % (15.3-44.8); MCH 30.6 pg (27.0-35.0); MCHC 34.3 g/dL (32.0-36.0); MCV 89.2 fL (80-100); MPV 7.4 fL (7.6-11.3); Monocytes % 8.2 % (3.3-12.3); Nucleated Red Blood Cells % 0.1 % (0-0); Platelets 262 thou/uL (152-406); RBC Red Blood Cell Count 3.89 M/uL (3.86-4.86); Red Cell Distribution Width 12.5 % (12.1-15.2)
[2024-10-23 06:05] LABS: Anion Gap 7.2 mEq/L (5.0-15.0); Potassium 4.2 mEq/L (3.5-5.1); Thyroid Stimulating Hormone 0.341 uIU/mL (0.358-3.740)
[2024-10-23] MEDS ORDERED: REGADENOSON 0.4 MG/5 ML SYR IV ONE (09:20)
[2024-10-23] MEDS ORDERED: HYDRALAZINE HCL 20 MG/ML VIAL ONE (09:36)
[2024-10-23] MEDS: LABETALOL 20 MG/4ML SYRINGE IV ONE (09:42)
--- NOTE | 2024-10-23 10:29 | RAD REPORT ---
EXAM :Rest Stress Cardiac Imaging CLINICAL HISTORY: Angina TECHNIQUE: Rest images: 9.6 mCi technetium 99m sestamibi administered intravenously. Stress images: 27.8 mCi of technetium 99m sestamibi administered intravenously. Cardiac SPECT images obtained FINDINGS: Small area of diminished radiotracer activity involves the apical left ventricular myocardium on stre ss sequences. This has a normal appearance on rest images. The left ventricular ejection fraction equals 46% IMPRESSION: Small area of diminished radiotracer activity involving the apical left ventricular myocardium may in dicate stress-induced ischemia. Physiologic apical thinning is a another consideration
[2024-10-23] MEDS: CLOPIDOGREL 75 MG TABLET PO SCH (10:43)
--- NOTE | 2024-10-23 11:07 | P.PN ---
Subjective Date of Service: 10/23/24 Chief Complaint: Chest Pain Subjective: No new changes, No C/O voiced, Tolerating diet, Ambulating, Improving Review of Systems 10-point ROS is otherwise unremarkable Physical Examination - Vital Signs Temperature: 97.6 F Blood Pressure: 111/55 Pulse: 68 Respirations: 16 Pulse Ox (%): 96 - Physical Exam General: Alert, In no apparent distress HEENT: Atraumatic, PERRLA, EOMI Neck: Supple, JVD not distended Respiratory: Clear to auscultation bilaterally, Normal air movement Cardiovascular: Regular rate/rhythm, Normal S1 S2 Gastrointestinal: Normal bowel sounds, No tenderness Musculoskeletal: No tenderness Integumentary: No rashes Neurological: Normal speech, Normal tone, Normal affect Lymphatics: No axilla or inguinal lymphadenopathy - Studies Medications List Reviewed: Yes Assessment And Plan - Current Problems (Diagnosis) (1) Chest pain Current Visit: No Status: Acute Plan: Patient had coronary angiogram last year that shown significant LAD and RCA disease, was transferred at that time to [place] for CABG but she was not a candidate so PCI was done, she is not sure if she was taking DAPT, but she remember that she was on ASA, she did not follow up with cardiology due to financial issues. Continue ASA 81 mg daily Continue Plavix 75 mg daily Patient stress test is abnormal, will proceed with coronary angiogram (2) Chronic systolic heart failure Current Visit: No Status: Acute Plan: echo last year shows EF 30-35% with moderate MR patient looks euvolemic on exam can not tolerate GDMT due to low BP.
--- NOTE | 2024-10-23 11:31 | EKG ---
Test Date: 2024-10-22 Test Time: 00:31:53 Syrup Maker: DORIS MEASUREMENT RESULTS: Intervals: Rate: 61 CA: 168 QRSD: 92 QT: 450 QTc: 453 [place]: P: 56 CA: 168 QRS: 0 T: 7 INTERPRETIVE STATEMENTS: Normal sinus rhythm Minimal voltage criteria for LVH, may be normal variant Possible Anterior infarct, age undetermined Abnormal ECG Compared to ECG 01/04/2024 16:45:01 Left ventricular hypertrophy now present Myocardial infarct finding now present T-wave abnormality no longer present Electronically Signed On 10-23-24 11:29:09 CDT by Connor Torres
[2024-10-23] MEDS ORDERED: NA CHLORIDE 0.9% 500 ML ONE (11:33)
[2024-10-23] MEDS ORDERED: ATROPINE SULF 1 MG/10 ML SYR IV ONE (11:39)
[2024-10-23] MEDS ORDERED: HEPARIN 5000 UNIT/ML 1 ML VIAL ONE (11:39)
[2024-10-23] MEDS ORDERED: HEPARIN 10,000 UNIT/10 ML VIAL IV ONE (11:39)
[2024-10-23] MEDS ORDERED: LIDOCAINE 1% 20 ML MDV ONE (11:39)
[2024-10-23] MEDS ORDERED: MIDAZOLAM HCL 2 MG/2 ML INJ ONE (11:39)
[2024-10-23] MEDS ORDERED: FENTANYL CITR 100 MCG/2 ML ONE (11:39)
[2024-10-23] MEDS ORDERED: HEPA 1000U/500MLS 2,000 UNIT/1,000 ML BAG IV ONE (11:39)
[2024-10-23] MEDS ORDERED: FLUMAZENIL 0.1 MG/ML (5 mL VIAL) IV ONE (11:40)
[2024-10-23] MEDS ORDERED: NALOXONE 0.4 MG/ML VIAL ONE (11:40)
[2024-10-23] MEDS ORDERED: Phenylephrine HCl 10 MG/ML 1 ML VIAL ONE (12:10)
--- NOTE | 2024-10-23 12:29 | TREADPHA ---
DX: ANGINA WITH HISTORY OF STENTS Date of Study: 10/23/2024 Ht: 5' 3 " Wt: 133 lb 0 oz Consulting Physician: ALDO MEDICATIONS: NORCO, ASPIRIN, LIPITOR, CELEXA, PLAVIX, LOVENOX, MELATONIN HISTORY: 64 YEAR OLD FEMALE WITH COMPAINTS OF CHEST PAIN. PHYSICIAL EXAMINATION: RESTING B.P.: 197/86 RESTING H.R.: 68 RESTING EKG: SINUS RHYTHM. PROTOCOL: LEXISCAN EXERCISE TIME: 3:30 B.P. AT PEAK STRESS: 31451 IMPRESSION: LEXISCAN INJECTED. CARDIOLITE INJECTED PER PROTOCOL. SEE NUCLEAR MEDICINE REPORT. PREMATURE VENTRICULAR COMPLEXES NOTED WITH LEXISCAN. COMPLAINTS OF MILD CHEST TIGHTNESS. NO VENTRICULAR OR SUPRAVENTRICULAR TACHYCARDIA. ELEVATED BLOOD PRESSURE, DR. CARLSON WAS NOTIFIED. 0946 10 mg HYDRALAZINE IV GEIVEN. 0947 10 mg LOBETROLOL IV GIVEN. 0953 BLOOD PRESSURE 193/66. DR. CARLSON APPROVED.
[2024-10-23 15:07] VITALS: O2SAT 99
[2024-10-23] MEDS: ONDANSETRON 4 MG/2 ML VIAL IV PRN (15:35)
--- NOTE | 2024-10-23 16:26 | P.PN ---
Subjective Date of Service: 10/23/24 Chief Complaint: Chest Pain Patient stress test came back positive. She is planned for cardiac catheterization today. Physical Examination - Vital Signs Temperature: 98.2 F Blood Pressure: 146/72 Pulse: 76 Respirations: 16 Pulse Ox (%): 95 - Studies Medications List Reviewed: Yes Assessment And Plan - Plan Physical examination General: Alert and oriented x3, NAD, HEENT: Conjunctiva not pale, anicteric sclera Neck: Supple, no elevated JVD Heart: Heart sounds 1 and 2 normal, regular rhythm, normal rate, no pedal edema Lungs: Clear to auscultation bilaterally, adequate breath sounds bilaterally, no rhonchi or crackles. Abdomen: Soft, nondistended, nontender, normal bowel sounds. Extremities: No tenderness, no deformity Skin: Normal skin turgor, vitiligo lesions-widespread. Neuro: No focal motor deficit. Normal speech. Psychiatry: Normal mood, no agitation. Diagnosis Chest pain History of coronary artery disease Hyperlipidemia GERD Chronic kidney disease stage Plan: Chest pain History of coronary artery disease Troponin trended negative, ACS ruled out Patient has significant CAD history, recent stent Continue aspirin and statin Echocardiogram is pending Cardiology consulted and awaiting input. Check lipid profile. GERD Patient with a history of severe GERD status post West fundoplication Patient symptoms could be related to GERD. Patient has not followed up with GI for several years. Trial of sucralfate and Protonix GI follow-up as outpatient recommended. CKD stage II Monitor renal parameters Marie thyroiditis Chronic anemia History of iron deficiency Check iron panel Check TSH Depression Anxiety Continue home medications. 10/23 Patient evaluated by cardiology Stress test was done which came back positive. Cardiology Dr. Torres plan cardiac catheterization today. Continue aspirin and statin Echocardiogram is pending Continue sucralfate and Protonix for GERD. DVT prophylaxis: Lovenox Advanced directive: full code Discharge Plan: Home
[2024-10-23 21:22] VITALS: BP 144/71; TEMP 97.7
--- NOTE | 2024-10-24 20:58 | OP ---
Date of Procedure: 10/23/2024 Surgeon: Connor Torres Procedures Performed: 1. Selective coronary angiogram. 2. Left heart catheterization. 3. Right subclavian angiogram. 4. Left subclavian angiogram. Indication For Procedure: Unstable angina, abnormal stress test. Complications: None. Estimated Blood Loss: Less than 50 cc. Sedation Time: 30 minutes with 1 of Versed and 25 fentanyl. Access: Right radial, closed by TR band and right common femoral artery, closed by Mynx. Description Of Procedure: After risks, benefits, and alternatives were explained to the patient, pat ient agreed to proceed with procedure and signed informed consent. The patient was brought back to [facility], prepped and draped in a sterile fashion. Time-out was performed. Sedation was administ ered. Next, right radial access was obtained using ultrasound-guided micropuncture technique. A Tig er 4 catheter was advanced over a J-wire. The catheter will not advance past the right subclavian ar liv. Angiogram was done, which showed occluded right subclavian artery so the catheter was pulled b ack. Then, right common femoral artery access was obtained using ultrasound-guided micropuncture miriam hnique. A 6-Honduran sheath was introduced. Next, JL3 catheter was advanced for the selective angiog boubacar of the left coronary systems that was followed by JR4 catheter for the selective angiogram of the right coronary systems. Unable to engage the right coronary system due to stent extending into the aorta. We attempted 3DRC and multipurpose catheters and then selective angiogram was done. The mult ipurpose catheter was advanced into the right innominate artery and angiogram shows occluded right rosas bclavian artery with patent carotid. Also, this catheter was pulled back into the left subclavian ar liv where selective angiogram was done of the left subclavian artery and CRANE. These were both [place] nt. Then, the procedure catheter was removed over a J-wire. Sheath was removed. Mynx was applied. Hemostasis was achieved and patient was moved back to Recovery in stable condition. Findings: 1. Left main: Ostial 70% to 80% disease, very short, with significant dampening of the blood pressur e on the catheters before even injecting into the left main, which indicates significant left main di sease. 2. LAD: Proximal stent is patent. There are mild luminal irregularities. 3. Left circ: Mild luminal irregularities. 4. RCA: Unable to selectively engage the RCA due to stent protruding significantly into the aorta, s o no selective angiogram was done and most likely the proximal and distal RCA stents are patent. 5. Right subclavian artery is occluded. 6. Left subclavian artery/CRANE is patent. Assessment And Plan: 1. Significant ostial/proximal left main disease with significant dampening of the pressure upon enga gement. That is a 4-Honduran catheter, so disease is really significant. 2. Occluded right subclavian artery. 3. Plan will be to transfer patient for inpatient coronary artery bypass grafting evaluation. The pa tient will need further assessment of the right coronary artery stent prior to evaluation for coronar y artery bypass grafting. 4. Also, consult Vascular Surgery to evaluate the right subclavian artery occlusion. SWETA/WOLF Voice ID: [id number] Report ID: [id number]
== END 2024-10-23 22:20 | disposition short-term general hospital (02) | DRG 286 ==
LOC: ER 20:56 → 2ND 22:51
PROVIDERS: ADMIT Family Medicine; ATTEND Internal Medicine
PROC: 4A023N7 Measurement of Cardiac Sampling and Pressure, Left Heart, Percutaneous Approach (ICD-10-PCS; principal; 2024-10-23)
PROC: B2111ZZ Fluoroscopy of Multiple Coronary Arteries using Low Osmolar Contrast (ICD-10-PCS; 2024-10-23)
DX: I25.10 Atherosclerotic heart disease of native coronary artery without angina pectoris (principal); I50.23 Acute on chronic systolic (congestive) heart failure; I13.0 Hypertensive heart and chronic kidney disease with heart failure and stage 1 through stage 4 chronic kidney disease, or unspecified chronic kidney disease; N18.2 Chronic kidney disease, stage 2 (mild); D63.1 Anemia in chronic kidney disease; E03.9 Hypothyroidism, unspecified; F41.9 Anxiety disorder, unspecified; E06.3 Autoimmune thyroiditis; I34.0 Nonrheumatic mitral (valve) insufficiency; F31.9 Bipolar disorder, unspecified; K21.9 Gastro-esophageal reflux disease without esophagitis; F17.210 Nicotine dependence, cigarettes, uncomplicated; Z95.1 Presence of aortocoronary bypass graft; Z88.0 Allergy status to penicillin; Z95.5 Presence of coronary angioplasty implant and graft; Z88.8 Allergy status to other drugs, medicaments and biological substances; Z98.84 Bariatric surgery status; Z79.82 Long term (current) use of aspirin; Z79.890 Hormone replacement therapy; Z79.899 Other long term (current) drug therapy; Z90.710 Acquired absence of both cervix and uterus; Z23 Encounter for immunization
CPT/HCPCS: 36415; 71045; 71275; 74175; 76937; 78452; 80048; 80053; 80076; 81003; 83540; 83690; 83735; 83880; 84100; 84443; 84466; 84484; 85025; 85610; 90656; 93005; 93017; 93458; 96372; 96374; 96375; 99152; 99153; 99285; A9500; C1760; C1893; J0360; J0461; J1644; J1650; J2003; J2250; J2270; J2310; J2371; J2405; J2785; J3010; J7040; J7608; Q9967